=== PATIENT | female | born 1985 | race Caucasian/White ===

== ENCOUNTER 2016-11-25 08:51 | Emergency (ER) | payer OTHER ==
[2016-11-25 09:21] VITALS: BP 101/76
--- NOTE | 2016-11-25 09:31 | UC ---
Throat Pain/Nasal [place] HPI - HPI Summary HPI Summary: NASAL CONGESTION / COUGH X 10 DAYS NO FEVER, + CHILLS , NO BODY ACHES - History of Current Complaint Chief Complaint: UCGeneralIllness Stated Complaint: CONGESTION,FEVER Time Seen by Provider: 11/25/16 09:23 Hx Obtained From: Patient Hx Last Menstrual Period: uterine ablation and tubal 2015 Onset/Duration: Gradual Onset, Lasting Days - 10, Still Present Severity: Moderate Cough: Nonproductive Associated Signs & Symptoms: Positive: Sinus Discomfort, Nasal Discharge. Negative: Fever, Vomiting, Rash - Allergies/Home Medications Allergies/Adverse Reactions: Allergies Allergy/AdvReac Type Severity Reaction Status Date / Time Sulfamethoxazole Allergy DIARRHEA/STOMACH Verified 11/25/16 09:21 w/Trimethoprim CRAMPING [From Bactrim] AND HEADACHES PMH/Surg Hx/FS Hx/Imm Hx Endocrine History Of: Denies: Diabetes Cardiovascular History Of: Denies: Hypertension, Pacemaker/ICD Respiratory History Of: Reports: Bronchitis - GETS FEW TIMES A WINTER GI/ History Of: Denies: Renal Disease Neurological History Of: Reports: Migraine Psychological History Of: Reports: Anxiety, Depression - Surgical History Surgical History: Yes Surgery Procedure, Year, and Place: -01/26/12;GANGLION [facility]ST [facility] -06/23;. uterine ablation and tubal LIGATION 06/27/2015 [facility]. [facility] - [place] - Family History Known Family History: Positive: Hypertension - FATHER Negative: Cardiac Disease, Diabetes - Social History Alcohol Use: None Substance Use Type: None Smoking Status (MU): Former Smoker - Immunization History Most Recent Influenza Vaccination: june 2016 Review of Systems Constitutional: Chills, Fatigue Skin: Negative Eyes: Negative ENT: Sore Throat, Ear Ache, Nasal Discharge Respiratory: Cough Cardiovascular: Negative Gastrointestinal: Negative All Other Systems Reviewed And Are Negative: Yes Physical Exam Triage Information Reviewed: Yes Appearance: Well-Appearing, No Pain Distress, Well-Nourished Vital Signs: Initial Vital Signs Temp 99.0 F 11/25/16 09:18 Pulse 74 11/25/16 09:18 Resp 18 11/25/16 09:18 BP 101/76 11/25/16 09:18 Pulse Ox 100 11/25/16 09:18 Vital Signs Reviewed: Yes Eyes: Positive: Conjunctiva Clear ENT: Positive: Normal ENT inspection, Hearing grossly normal, Pharynx normal, Nasal congestion, Nasal drainage Neck exam: Normal Neck: Positive: Supple, Nontender, No Lymphadenopathy Respiratory: Positive: Chest non-tender, Lungs clear, Normal breath sounds Cardiovascular: Positive: RRR, No Murmur, Pulses Normal Skin: Positive: rashes Throat Pain/Nasal Course/Dx - Differential Dx/Diagnosis Provider Diagnoses: URI Discharge - Discharge Plan Condition: Stable Disposition: HOME Patient Education Materials: Upper Respiratory Infection (ED) Referrals: Dorothy Rankin MD [Primary Care Provider] - If Needed
== END 2016-11-25 09:39 | disposition home or self-care (01) ==
LOC: UCCORT 08:51
DX: J06.9 Acute upper respiratory infection, unspecified (principal); Z88.2 Allergy status to sulfonamides; Z87.891 Personal history of nicotine dependence
CPT/HCPCS: 99211; G0463

== ENCOUNTER 2017-02-15 07:42 | Emergency (ER) | payer MEDICAID, OTHER ==
[2017-02-15 07:57] VITALS: BP 104/71
[2017-02-15] MEDS ORDERED: Ketorolac INJ* 60 MG/2 ML VIAL IM ONE (08:01)
[2017-02-15] MEDS ORDERED: Ondansetron ODT TAB* 4 MG PO ONE (08:02)
--- NOTE | 2017-02-15 08:17 | UC ---
Headache HPI - History Of Current Complaint Chief Complaint: UCHeadanolberto Stated Complaint: MIGRAINE Time Seen by Provider: 02/15/17 07:44 Hx Obtained From: Patient Hx Last Menstrual Period: 02/15/17 ?: No Onset/Duration: Gradual Onset, Lasting Days - 1, Still Present Onset Of Symptoms: Gradual Initially Headache Was: Severe Currently Pain Is: Severe Timing: Constant Character: Sharp, Throbbing, Migraine Location of Headache: Diffuse Aggravating Factor: Bright Lights Allevating Factors: Nothing Associated Signs And Symptoms: Positive: Nausea. Negative: Dizziness, Seizure, Vomiting, Sinus Pressure, Fever, Neck Pain, Neck Stiffness, Decreased LOC, Visual Changes - Allergies/Home Medications Allergies/Adverse Reactions: Allergies Allergy/AdvReac Type Severity Reaction Status Date / Time Sulfamethoxazole Allergy DIARRHEA/STOMACH Verified 02/15/17 07:48 w/Trimethoprim CRAMPING [From Bactrim] AND HEADACHES Home Medications: Home Medications Migraine Medication 1 tab PRN 02/15/17 [History] PMH/Surg Hx/FS Hx/Imm Hx Other Neurological History: headaches - Surgical History Surgical History: Yes Surgery Procedure, Year, and Place: -01/26/12;GANGLION CYST ON [facility] -06/23;. uterine ablation and tubal LIGATION 06/27/2015 [facility]. [facility] - [place] - Family History Known Family History: Positive: Hypertension - FATHER Negative: Cardiac Disease, Diabetes - Social History Alcohol Use: Rare Substance Use Type: Marijuana Substance Use Comment - Amount & Last Used: Yesterday 02/14/17 Smoking Status (MU): Former Smoker - Immunization History Most Recent Influenza Vaccination: june 2016 Most Recent Tetanus Shot: UTD Most Recent Pneumonia Vaccination: N/A Review of Systems Constitutional: Negative Skin: Negative Eyes: Negative ENT: Nasal Discharge Respiratory: Negative Cardiovascular: Negative Neurological: Headache All Other Systems Reviewed And Are Negative: Yes Physical Exam Triage Information Reviewed: Yes Appearance: Well-Appearing, Well-Nourished, Pain Distress Vital Signs: Initial Vital Signs Temp 98.7 F 02/15/17 07:50 Pulse 64 02/15/17 07:50 Resp 18 02/15/17 07:50 BP 104/71 02/15/17 07:50 Pulse Ox 99 02/15/17 07:50 Vital Signs Reviewed: Yes Eye Exam: Normal Eyes: Positive: Conjunctiva Clear ENT: Positive: Normal ENT inspection, Hearing grossly normal, Pharynx normal, Nasal congestion, TMs normal. Negative: Nasal drainage Neck: Positive: Supple, Nontender, No Lymphadenopathy Respiratory: Positive: Chest non-tender, Lungs clear, Normal breath sounds Cardiovascular: Positive: RRR, No Murmur, Pulses Normal Abdominal Exam: Normal Neurological: Positive: Alert, Muscle Tone Normal UC Physical Exam Vital Signs On Initial Exam: Initial Vitals Temp Pulse Resp BP Pulse Ox 98.7 F 64 18 104/71 99 02/15/17 07:50 02/15/17 07:50 02/15/17 07:50 02/15/17 07:50 02/15/17 07:50 - Neurological Exam Neurological: Sensory/Motor Intact, Alert, Oriented to Person Place, Time, CN Intact II-III, Reflexes Intact, NV Bundle Intact Distally, Normal Gait, Speech Normal Headache Course/Dx - Differential Dx/Diagnosis Provider Diagnoses: headaches Discharge - Discharge Plan Condition: Stable Disposition: HOME Patient Education Materials: Migraine Headache (ED) Forms: *Work Release Referrals: Dorothy Rankin MD [Primary Care Provider] - 7 Days
== END 2017-02-15 08:39 | disposition home or self-care (01) ==
LOC: UCCORT 07:42
DX: R51 Headache (principal); R11.0 Nausea; Z88.2 Allergy status to sulfonamides; Z87.891 Personal history of nicotine dependence
CPT/HCPCS: 96372; 99212; A9270-GY; G0463; J1885

== ENCOUNTER 2017-04-12 11:29 | Emergency (ER) | payer MEDICAID, OTHER ==
[2017-04-12 11:41] VITALS: BP 116/81
--- NOTE | 2017-04-12 12:19 | UC ---
Headache HPI - HPI Summary HPI Summary: sever headaches x 2 hrs pain is shooting, sharp, radiating to the back of the head + mild nausea, mild photophobia - History Of Current Complaint Chief Complaint: UCHeadache Stated Complaint: SHOOTING PAIN IN HEAD Time Seen by Provider: 04/12/17 12:08 Hx Obtained From: Patient Hx Last Menstrual Period: unknown Onset/Duration: Gradual Onset, Lasting Hours - 2, Still Present Onset Of Symptoms: Gradual Currently Pain Is: Severe Timing: Constant Character: Throbbing Location of Headache: Diffuse Aggravating Factor: Bright Lights Allevating Factors: Nothing Associated Signs And Symptoms: Positive: Nausea. Negative: Dizziness, Seizure, Vomiting, Sinus Pressure, Fever, Neck Pain, Neck Stiffness, Decreased LOC, Visual Changes - Allergies/Home Medications Allergies/Adverse Reactions: Allergies Allergy/AdvReac Type Severity Reaction Status Date / Time Sulfamethoxazole Allergy DIARRHEA/STOMACH Verified 04/12/17 11:41 w/Trimethoprim CRAMPING [From Bactrim] AND HEADACHES PMH/Surg Hx/FS Hx/Imm Hx Previously Healthy: Yes Neurological History: Migraine - Surgical History Surgical History: Yes Surgery Procedure, Year, and Place: -01/26/12;GANGLION CYST ON [facility] -06/23;. uterine ablation and tubal LIGATION 06/27/2015 [facility]. [facility] - [place] - Family History Known Family History: Positive: Hypertension - FATHER Negative: Cardiac Disease, Diabetes - Social History Alcohol Use: Rare Substance Use Type: Marijuana Substance Use Comment - Amount & Last Used: 04/12/17 Smoking Status (MU): Former Smoker - Immunization History Most Recent Influenza Vaccination: june 2016 Most Recent Tetanus Shot: UTD Most Recent Pneumonia Vaccination: N/A Review of Systems Constitutional: Negative Skin: Negative Eyes: Negative ENT: Negative Respiratory: Negative Cardiovascular: Negative Neurological: Headache All Other Systems Reviewed And Are Negative: Yes Physical Exam Triage Information Reviewed: Yes Appearance: Well-Appearing, No Pain Distress, Well-Nourished Vital Signs: Initial Vital Signs Temp 98.8 F 04/12/17 11:35 Pulse 85 04/12/17 11:35 Resp 18 04/12/17 11:35 BP 116/81 04/12/17 11:35 Vital Signs Reviewed: Yes Eyes: Positive: Conjunctiva Clear ENT: Positive: Normal ENT inspection, Hearing grossly normal, Pharynx normal Neck: Positive: Supple, Nontender, No Lymphadenopathy Respiratory Exam: Normal Respiratory: Positive: Chest non-tender, Lungs clear, Normal breath sounds, No respiratory distress Cardiovascular: Positive: RRR, No Murmur, Pulses Normal Abdominal Exam: Normal Abdomen Description: Positive: Soft Neurological Exam: Normal Neurological: Positive: Alert, Muscle Tone Normal, Fatigued Skin Exam: Normal UC Physical Exam Vital Signs On Initial Exam: Initial Vitals Temp Pulse Resp BP 98.8 F 85 18 116/81 04/12/17 11:35 04/12/17 11:35 04/12/17 11:35 04/12/17 11:35 - Neurological Exam Neurological: Normal, Sensory/Motor Intact, Alert, Oriented to Person Place, Time, CN Intact II-III, Reflexes Intact, Normal Gait, Speech Normal Headache Course/Dx - Differential Dx/Diagnosis Provider Diagnoses: acute headache Discharge - Discharge Plan Condition: Stable Disposition: HOME Patient Education Materials: Acute Headache (ED) Forms: *Work Release Referrals: Dorothy Rankin MD [Primary Care Provider] - 7 Days Additional Instructions: may take Imitrex as soon as you get home
== END 2017-04-12 12:25 | disposition home or self-care (01) ==
LOC: UCCORT 11:29
DX: R51 Headache (principal); Z87.891 Personal history of nicotine dependence
CPT/HCPCS: 99211; G0463

== ENCOUNTER 2018-01-28 10:40 | Emergency (ER) | payer OTHER ==
[2018-01-28 11:17] VITALS: BP 127/74
--- NOTE | 2018-01-28 11:53 | UC ---
UC General HPI - HPI Summary HPI Summary: PT IS C/O SEVERE BURNING IN HER LEFT ABDOMEN. IT BEGAN SUDDENLY 3 DAYS AGO AND IS WORSENING. SHE TRIED TO TX WITH HEAT AND A MM RELAXOR WITH NO RELIEF. HX R OVARIAN CYSTS AND ASSUMED THAT AT ONSET BUT THIS IS NOW FEELING DIFFERENT AND WORSE. + NAUSEA BUT NO FEVER V/D/DYSURIA. DENIES ANY VAGINAL D/C, RISK/CONCERN PELVIC INFECTION. - History of Current Complaint Hx Obtained From: Patient Hx Last Menstrual Period: unknown Onset/Duration: Sudden Onset Timing: Constant Pain Intensity: 10 Aggravating: ANY TYPE OF MOVEMENT Alleviating: NOTHING Associated Signs & Symptoms: Positive: Abdominal Pain. Negative: Diarrhea, Dysuria, Fever, Vomiting <Lacy Townsend - Last Filed: 01/28/18 11:57> <Lexus Da Silva - Last Filed: 01/28/18 12:48> - History of Current Complaint Chief Complaint: UCAbdominalPain Stated Complaint: ABDOMINAL PAIN Time Seen by Provider: 01/28/18 11:46 - Allergy/Home Medications Allergies/Adverse Reactions: Allergies Allergy/AdvReac Type Severity Reaction Status Date / Time sulfamethoxazole Allergy Diarrhea Verified 01/28/18 11:21 [From Bactrim] trimethoprim [From Bactrim] Allergy Diarrhea Verified 01/28/18 11:21 Home Medications: Home Medications Cyclobenzaprine TAB* [Flexeril 10 MG TAB*] 10 mg PO DAILY 01/28/18 [History Confirmed 01/28/18] PMH/Surg Hx/FS Hx/Imm Hx - Additional Past Medical History Additional PMH: ALLERGIES, R OVARIAN CYST Neurological History: Migraine - Surgical History Surgical History: Yes Surgery Procedure, Year, and Place: -01/26/12;GANGLION CYST [facility] -06/23;. uterine ablation and tubal LIGATION 06/27/2015 [facility]. Lt [facility] - [place] - Family History Known Family History: Positive: Hypertension - FATHER Negative: Cardiac Disease, Diabetes - Social History Lives: With Family Alcohol Use: Rare Substance Use Type: Marijuana Substance Use Comment - Amount & Last Used: 04/12/17 Smoking Status (MU): Former Smoker - Immunization History Most Recent Influenza Vaccination: june 2016 Most Recent Tetanus Shot: UTD Most Recent Pneumonia Vaccination: N/A Vaccination Up to Date: Yes <Lacy Townsend - Last Filed: 01/28/18 11:57> Review of Systems Constitutional: Negative Skin: Negative Eyes: Negative ENT: Negative Respiratory: Negative Cardiovascular: Negative Gastrointestinal: Abdominal Pain, Nausea Genitourinary: Negative Motor: Negative Neurovascular: Negative Musculoskeletal: Negative Neurological: Negative Psychological: Negative Is Patient Immunocompromised?: No All Other Systems Reviewed And Are Negative: Yes <Lacy Townsend - Last Filed: 01/28/18 11:57> Physical Exam Triage Information Reviewed: Yes Appearance: Pain Distress Vital Signs: Initial Vital Signs Temp 97.8 F 01/28/18 11:09 Pulse 70 01/28/18 11:09 Resp 18 01/28/18 11:09 BP 127/74 01/28/18 11:09 Pulse Ox 100 01/28/18 11:09 Vital Signs Reviewed: Yes Eyes: Positive: Conjunctiva Clear ENT: Positive: Pharynx normal, TMs normal. Negative: Nasal congestion, Nasal drainage Neck: Positive: Supple, Nontender, No Lymphadenopathy Respiratory: Positive: Lungs clear, Normal breath sounds Cardiovascular: Positive: RRR, No Murmur Abdomen Description: Positive: Other: - Flat. Hyperactive BS. Soft. Tendernes to LUQ and LLQ with peritoneal signs. No mass, hsm or CVA tenderness.. Negative : Bruit Musculoskeletal: Positive: ROM Intact Neurological: Positive: Alert Psychological: Positive: Age Appropriate Behavior Skin Exam: Normal <CaryLacy - Last Filed: 01/28/18 11:57> Vital Signs: Initial Vital Signs Temp 97.8 F 01/28/18 11:09 Pulse 70 01/28/18 11:09 Resp 01/28/18 11:09 BP 127/74 01/28/18 11:09 Pulse Ox 100 01/28/18 11:09 <Lexus Da Silva - Last Filed: 01/28/18 12:48> Diagnostics - Laboratory Diagnostic Studies Completed/Ordered: hcg=neg. u/a=1+ leuks, 0.2 urobilogen <Lacy Townsend - Last Filed: 01/28/18 11:57> Course/Dx - Course Course Of Treatment: HCG=neg. pt having svere abdominal pain with peritoneal signs thus requires ER transfer. she agrees to go but refused ems despite risk of mva, worsening, disability and . she is a&o x3 and able to makes decisions thus I must respect her wish to drive self to ER. Report given to Dr Goode at [facility] ER. advised of sever abdominal pain and coming vis car. - Differential Dx - Multi-Symptom Provider Diagnoses: L sided abdominal pain <Lacy Townsend - Last Filed: 01/28/18 11:57> Discharge - Sign-Out/Discharge Documenting (check all that apply): Discharge/Admit/Transfer - Billing Disposition and Condition Condition: STABLE Disposition: EMTALA <Lacy Townsend - Last Filed: 01/28/18 11:57> - Billing Disposition and Condition Condition: STABLE Disposition: EMTALA <Lexus Da Silva - Last Filed: 01/28/18 12:48> - Discharge Plan Condition: Stable Disposition: TRANS HIGHER LVL OF CARE FAC Referrals: Dorothy Rankin MD [Primary Care Provider] - Additional Instructions: GO DIRECTLY TO THE [facility] ER FROM HERE DISCUSSED Attestation Statement User Type: Provider - I was available for consult. This patient was seen by the GONZÁLEZ. The patient was not presented to, seen by, or examined by me. -Yaima <Lexus Da Silva - Last Filed: 01/28/18 12:48>
== END 2018-01-28 11:59 | disposition short-term general hospital (02) ==
LOC: UCCORT 10:40
DX: R10.9 Unspecified abdominal pain (principal); Z87.891 Personal history of nicotine dependence; Z88.2 Allergy status to sulfonamides
CPT/HCPCS: 81003; 84702; 87086; 99212; G0463

== ENCOUNTER 2018-03-21 12:55 | Emergency (ER) | payer OTHER ==
[2018-03-21 13:30] VITALS: BP 104/54
--- NOTE | 2018-03-21 13:48 | UC ---
Lower Extremity/Ankle HPI - HPI Summary HPI Summary: right ankle / foot pain x 3 weeks injury 3 weeks ago , twisted her ankle cont. to have pain , no swelling, no redness, increase pain with walking, better with rest - History of Current Complaint Chief Complaint: UCLowerExtremity Stated Complaint: RT ANKLE COMP Time Seen by Provider: 03/21/18 13:23 Hx Obtained From: Patient Hx Last Menstrual Period: unknown ?: No Onset/Duration: Sudden Onset, Lasting Weeks - 3, Still Present Severity Initially: Moderate Severity Currently: Moderate Pain Intensity: 5 Aggravating Factor(s): Standing, Ambulation Alleviating Factor(s): Rest, Elevation Able to Bear Weight: Yes - Allergies/Home Medications Allergies/Adverse Reactions: Allergies Allergy/AdvReac Type Severity Reaction Status Date / Time sulfamethoxazole Allergy Diarrhea Verified 03/21/18 13:24 [From Bactrim] trimethoprim [From Bactrim] Allergy Diarrhea Verified 03/21/18 13:24 PMH/Surg Hx/FS Hx/Imm Hx Respiratory History: Asthma Neurological History: Migraine - Surgical History Surgical History: Yes Surgery Procedure, Year, and Place: -01/26/12;GANGLION CYST ON [facility] -06/23;. uterine ablation and tubal LIGATION 06/27/2015 [facility]. Lt [facility] - [place] - Family History Known Family History: Positive: Hypertension - FATHER Negative: Cardiac Disease, Diabetes - Social History Alcohol Use: None Substance Use Type: None Substance Use Comment - Amount & Last Used: 04/12/17 Smoking Status (MU): Former Smoker When Did the Patient Quit Smoking/Using Tobacco: 10 years ago - Immunization History Most Recent Influenza Vaccination: june 2016 Most Recent Tetanus Shot: UTD Most Recent Pneumonia Vaccination: N/A Vaccination Up to Date: Yes Review of Systems Constitutional: Negative Skin: Negative Eyes: Negative ENT: Negative Respiratory: Negative Is Patient Immunocompromised?: No All Other Systems Reviewed And Are Negative: Yes Physical Exam Triage Information Reviewed: Yes Appearance: Well-Appearing, No Pain Distress, Well-Nourished Vital Signs: Initial Vital Signs Temp 98.8 F 03/21/18 13:25 Pulse 79 03/21/18 13:25 Resp 14 03/21/18 13:25 BP 104/54 03/21/18 13:25 Pulse Ox 100 03/21/18 13:25 Vital Signs Reviewed: Yes Eye Exam: Normal Eyes: Positive: Conjunctiva Clear ENT: Positive: Normal ENT inspection, Hearing grossly normal, Pharynx normal Neck exam: Normal Respiratory: Positive: Chest non-tender, Lungs clear, Normal breath sounds Cardiovascular: Positive: RRR, No Murmur, Pulses Normal Musculoskeletal: Positive: Other: - right foot : + no swelling, no erythema, + diffuse tenderness of foot and lateral ankle good ROM , Diagnostics - Laboratory Diagnostic Studies Completed/Ordered: right foot xray: no fracture , Lower Extremity Course/Dx - Differential Dx/Diagnosis Provider Diagnoses: sprain right foot. sprain right ankle Discharge - Sign-Out/Discharge Documenting (check all that apply): Discharge/Admit/Transfer - Discharge Plan Condition: Stable Disposition: HOME Prescriptions: Naproxen [Naproxen 500 mg tab] 500 mg PO BID #20 tablet Patient Education Materials: Tendinitis (ED) Referrals: Dorothy Rankin MD [Primary Care Provider] - 2 Weeks - Billing Disposition and Condition Condition: STABLE Disposition: Home
--- NOTE | 2018-03-21 13:49 | RAD ---
HISTORY: twisted her right foot COMPARISONS: May 22, 2014 VIEWS: 3, Frontal, lateral, and oblique views of the right foot FINDINGS: BONE DENSITY: Normal. BONES: There is no displaced fracture. JOINTS: There is no arthropathy. ALIGNMENT: There is no dislocation. SOFT TISSUES: Unremarkable. OTHER FINDINGS: None. IMPRESSION: NO ACUTE OSSEOUS INJURY. IF SYMPTOMS PERSIST, RECOMMEND REPEAT IMAGING.
== END 2018-03-21 14:08 | disposition home or self-care (01) ==
LOC: UCCORT 12:55
DX: S93.401A Sprain of unspecified ligament of right ankle, initial encounter (principal); S93.601A Unspecified sprain of right foot, initial encounter; X50.1XXA Overexertion from prolonged static or awkward postures, initial encounter; Y93.9 Activity, unspecified; Y92.9 Unspecified place or not applicable; J45.909 Unspecified asthma, uncomplicated; G43.909 Migraine, unspecified, not intractable, without status migrainosus; Z88.2 Allergy status to sulfonamides; Z82.49 Family history of ischemic heart disease and other diseases of the circulatory system; Z87.891 Personal history of nicotine dependence
CPT/HCPCS: 99212; G0463

== ENCOUNTER 2018-08-11 13:35 | Emergency (ER) | payer OTHER ==
--- OUTSIDE RECORDS SUMMARY | 2018-08-11 13:42 | XMS REPORT | Continuity of Care Document ---
:1985 External Reference #:[id number] Author Name Kaylene Kim Care Team Providers Name Role Phone Dorothy Rankin MD Primary Care Physician Unavailable Payers Type Date Identification Numbers Payment Provider Subscriber Expires: 2016 Policy Number: [id number] [employer] Medicaid PayID: [id number] [address] [address] [place] [address] Effective: 2016 Policy Number: [id number] [employer] Group Number: [id number] [address] PayID: [id number] [place] [address] Advance Directives Description No Information Available Problems Date Description Provider Status Onset: 04/01/2016 Pain in right arm Liza Danielle M.D. Active Onset: 04/16/2016 Disorder of shoulder Taco Metzger MD Active Onset: 04/16/2016 Neck pain Taco Metzger MD Active Onset: 04/16/2016 Thoracic radiculopathy Taco Metzger MD Active Onset: 06/11/2016 Fibromyalgia Taco Metzger MD Active Onset: 11/17/2016 Low back pain Tylor Zhao M.D. 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 Tobacco Use Start: Unknown End: Patient is a former smoker Unknown Smoking Status Reviewed: 07/31/18 Patient is a former smoker Exercise Type/Frequency Exercises sporadically Allergies, Adverse Reactions, Alerts Date Description Reaction Status Severity Comments 04/01/2016 Bactrim Active 06/01/2012 NKDA Inactive Medications Medication Date Status Form Strength Qnty SIG Indications Ordering Provider Plaquenil 07/13 Active Tablets 200mg 30tab Take one s capsule/tabl Kailee, et daily by Uzair mouth Aspercreme 05/10 Active Patches 4% 30uni apply one Lidocaine ts patch to the Kailee, Strength affected M.D. area daily, 12 hours on, 12 hours off B12 Fast 05/08 Active Tablets 5000mcg 90tab sublingual D51.9 Dispers s daily Uzair Dugan Cyanocobalamin 08/31 Active Solution 1000mcg/M 75ml sq once R20.8 L monthly Uzair Dugan Elmiron Active Capsules 100mg 1 by mouth Elliott, / three times MD Rinku daily Claritin Active Capsules 10mg 1 by mouth Unknown /0000 every day Cyclobenzaprine Active Tablets 10mg one by mouth Unknown HCL /0000 three times a day as needed spasm Womens Active Tablets Unknown Multivitamin / St Brian Wort Active Capsules 150mg Unknown /0000 Lidoderm 05/08 Hx Patches 5% 30uni 1 apply to M54.5 ts affected Kailee, - area 12 M.D. 05/23 hours on, hours off Melatonin TR 04/12 Hx Tablets 3-10mg 90tab take one G47.00 With Vitamin B6 ER s capsule/tabl Kailee, - et daily by Uzair 05/08 Turmeric 08/31 Hx Capsules 500mg Take one capsule/tabl Kailee, - et daily by Uzair 04/12 Diclofenac 08/11 Hx Tablets 75mg 30tab take one DR s capsule/tabl Kailee, - et by mouth Uzair 11/29 twice daily as needed for pain, avoid other nsaids Prednisone 06/15 Hx Tablets 10mg 30tab take 4 tabs s by mouth Kailee, - daily for 2 M.D. 08/31 days then tabs daily for 2 days then 2 tabs for 2 days then 1 tab for 2 days then d/c Plaquenil 06/07 Hx Tablets 200mg 60tab 2 every s other day Kailee, - M.D. 04/12 Ibuprofen 04/25 Hx Tablets 800mg 42tab take 1 s tablet by Kailee, - mouth three M.D. 08/11 times daily as needed -- maximum daily dose 3, avoid other NSAIDs Meloxicam 12/24 Hx Tablets 7.5mg 60tab take one tab M79.7 s twice daily Kailee, - as needed M.D. 06/02 for pain, avoid other nsaids (PT Not Taking) Naltrexone HCL 11/18 Hx Powder 90uni 4.5 mg ts compounded Kailee, - in capsules M.D. 12/24 by mouth every day Baclofen 11/08 Hx Tablets 10mg 60tab take 1 tab R20.2 s bid prn Kailee, - muscle spasm M.D. 08/31 Soma 10/08 Hx Tablets 350mg 30tab take one R20.2 s tablet/capsu Kailee, - le by mouth M.D. 11/08 at bedtime. as needed for severe muscular spasm Slow Release 09/24 Hx Tablets 50mg 90tab take one M79.7 Damián ER s capsule/tabl Kailee, - et daily by M.D. 12/24 mouth Gabapentin 09/17 Hx Capsules 300mg 90cap 300mg by M79.7 s mouth three Kailee, - times daily M.D. 11/16 for neuropathic pain Tizanidine HCL 09/02 Hx Tablets 2mg 30tab Take one M79.7 s capsule/tabl Kailee, - et by mouth M.D. 09/24 twice daily as needed for spasms, avoid with driving Prednisone 09/02 Hx Tablets 5mg 90tab Please take M79.7 s 4 for 2 days Kailee, - then 3 for 2 M.D. 09/24 days then for 2 days 1 by mouth for 2 days then stop Prednisone 07/30 Hx Tablets 2.5mg 30tab take 3 tabs s daily for 5 Kailee, - days then 2 M.D. 09/02 tabs daily for 5 days then 1 tab daily for 5 days then discontinue Medrol 06/11 Hx TBPK 4mg 21uni take as M75.41 ts directed by MD Domenica - packaging 07/07 Tramadol HCL 05/18 Hx Tablets 50mg 30tab 1-2 tablets s every 6 Reza, - hours as M.D. 11/02 Buspirone HCL 04/16 Hx Tablets 5mg 14tab tid s MD Domenica - 07/07 Ultracet 06/25 Hx Tablets 37.5-325m 30tab 1 - 2 po g s q4-6hr prn Mosquera, - pain M.D. 07/16 Acetaminophen/Co 09/28 Hx Tablets 300-30mg 30tab 1 po q 4-6 Jami deine #3 s hr prn pain Mosquera, - M.D. 07/16 Ultracet 06/15 Hx Tablets 37.5-325m 30tab 1 - 2 po g s q4-6hr prn Mosquera, - pain M.D. 07/16 Vol-Plus Hx Tablets 27-1mg 1 qs Unknown /0000 - 07/16 Flexeril Hx Tablets 5mg 30tab 1 tablet Unknown /0000 s three times - a day as 07/15 Valacyclovir HCL Hx Tablets 500mg 90tab 1 po qd Unknown /0000 s - 07/[address] 30mg 90cap 1 by mouth Unknown /0000 Part s every - morning 03/31 Opana Hx Tablets 5mg 120ta 1 tablet by Unknown /0000 bs mouth up to - three times 03/31 a day needed. Lyrica Hx Capsules 100mg 30cap 1 by mouth Damián /0000 s every night Geovanna Dugan M.D. 09/17 Topiramate Hx Tablets 50mg 1 by mouth Unknown /0000 every day - 04/12 Xanax Hx Tablets 0.25mg one by mouth Unknown /0000 up to three - times daily 12/24 as needed /2017 for anxiety Prednisone Hx Tablets 10mg 10mg daily Unknown - 07/30 Paroxetine HCL Hx Tablets 40mg 1 by mouth Unknown every day - 05/30 Amitriptyline Hx Tablets 10mg 1-2 at [facility], HCL /0000 bedtime. Geovanna De La Cruz MD 11/29 Citalopram Hx Tablets 20mg 1 by mouth Unknown Hydrobromide /0000 every day - 08/31 Dexamethasone Hx Tablets 2mg Unknown - 08/31 Fluoxetine HCL Hx Capsules 20mg 1 by mouth Unknown every day - 04/12 Womens Daily Hx Tablets Unknown - 04/12 Medications Administered in Office Medication Date Status Form Strength Qnty SIG Indications Ordering Provider No Injection 07/31/ Administered Injection Damián 2017 Uzair Dugan B-12 Injection 07/13/ Administered Injection Damián 2018 Uzair Dugan B-12 Injection 02/09/ Administered Injection Damián 2018 Uzair Dugan B-12 Injection 11/29/ Administered Injection Damián 2018 Uzair Dugan B12 Provided By 08/31/ Administered Injection Damián Patient 2016 Uzair Dugan Triamcinolone 04/25/ Administered Injection Damián (Kenalog) 2016 Uzair Dugan Depomedrol 40MG 03/03/ Administered Injection Jami 2015 Uzair Mosquera Depomedrol 40MG 11/05/ Administered Injection Jami 2015 Uzair Mosquera Depomedrol 80MG 01/27/ Administered Injection Jami 2014 Uzair Mosquera Depomedrol 80MG 07/17/ Administered Injection Jami 2013 Uzair Mosquera Depomedrol 80MG 04/04/ Administered Injection Jami 2012 Uzair Mosquera Immunizations Description No Information Available Vital Signs Date Vital Result Comment 07/31/2018 3:00pm Height 62 inches 5'2" Weight 109.25 lb Heart Rate 83 /min BP Systolic Sitting 116 mmHg BP Diastolic Sitting 80 mmHg Pain Level 8 O2 % BldC Oximetry 97 % BMI (Body Mass Index) 20.0 kg/m2 07/13/2018 2:00pm Height 62 inches 5'2" Weight 109.00 lb Heart Rate 82 /min BP Systolic Sitting 118 mmHg BP Diastolic Sitting 62 mmHg Pain Level 8 O2 % BldC Oximetry 98 % BMI (Body Mass Index) 19.9 kg/m2 05/08/2018 4:11pm Height 62 inches 5'2" Weight 120.00 lb Heart Rate 72 /min BP Systolic Sitting 124 mmHg BP Diastolic Sitting 82 mmHg Respiratory Rate 14 /min Pain Level 9 BMI (Body Mass Index) 21.9 kg/m2 04/12/2018 10:50am Height 62 inches 5'2" Heart Rate 69 /min BP Systolic Sitting 89 mmHg BP Diastolic Sitting 58 mmHg Respiratory Rate 14 /min Pain Level 9 02/09/2018 10:41am Height 62 inches 5'2" Weight 120.00 lb Heart Rate 72 /min BP Systolic 108 mmHg BP Diastolic 65 mmHg Pain Level 4 O2 % BldC Oximetry 97 % BMI (Body Mass Index) 21.9 kg/m2 11/29/2017 2:53pm Height 62 inches 5'2" Weight 117.00 lb Heart Rate 72 /min BP Systolic Sitting 103 mmHg BP Diastolic Sitting 70 mmHg Respiratory Rate 14 /min Pain Level 6 BMI (Body Mass Index) 21.4 kg/m2 08/31/2017 9:50am Height 62 inches 5'2" Weight 123.00 lb Heart Rate 89 /min BP Systolic Sitting 104 mmHg BP Diastolic Sitting 70 mmHg Respiratory Rate 14 /min Pain Level 3 BMI (Body Mass Index) 22.5 kg/m2 05/30/2017 1:53pm Height 62 inches 5'2" Weight 119.00 lb Heart Rate 78 /min BP Systolic Sitting 109 mmHg BP Diastolic Sitting 68 mmHg Respiratory Rate 14 /min Pain Level 5 BMI (Body Mass Index) 21.8 kg/m2 04/25/2017 9:49am Height 62 inches 5'2" Weight 118.25 lb Heart Rate 60 /min BP Systolic Sitting 102 mmHg BP Diastolic Sitting 60 mmHg Respiratory Rate 14 /min Body Temperature 98.1 F Pain Level 8 BMI (Body Mass Index) 21.6 kg/m2 12/24/2016 9:41am Height 62 inches 5'2" Weight 113.00 lb Heart Rate 70 /min BP Systolic Sitting 99 mmHg BP Diastolic Sitting 57 mmHg Body Temperature 97.7 F Pain Level 4 BMI (Body Mass Index) 20.7 kg/m2 11/17/2016 2:05pm Height 62 inches 5'2" Weight 105.00 lb Heart Rate 76 /min BP Systolic Sitting 98 mmHg BP Diastolic Sitting 60 mmHg Respiratory Rate 18 /min Pain Level 3 BMI (Body Mass Index) 19.2 kg/m2 11/02/2016 11:38am Height 62 inches 5'2" Weight 107.00 lb Heart Rate 76 /min BP Systolic Sitting 102 mmHg BP Diastolic Sitting 68 mmHg Body Temperature 98.5 F Pain Level 2 BMI (Body Mass Index) 19.6 kg/m2 10/29/2016 10:57am Height 62 inches 5'2" Weight 109.00 lb Heart Rate 62 /min BP Systolic Sitting 110 mmHg BP Diastolic Sitting 70 mmHg Pain Level 1 BMI (Body Mass Index) 19.9 kg/m2 10/08/2016 12:54pm Height 62 inches 5'2" Heart Rate 88 /min BP Systolic Sitting 92 mmHg BP Diastolic Sitting 60 mmHg Respiratory Rate 14 /min Body Temperature 95.8 F Pain Level 10 09/24/2016 12:48pm Height 62 inches 5'2" Weight 110.00 lb Heart Rate 84 /min BP Systolic Sitting 100 mmHg BP Diastolic Sitting 60 mmHg Respiratory Rate 14 /min Body Temperature 98.3 F Pain Level 6 BMI (Body Mass Index) 20.1 kg/m2 09/02/2016 9:46am Height 62 inches 5'2" Weight 110.50 lb Heart Rate 76 /min BP Systolic Sitting 90 mmHg BP Diastolic Sitting 60 mmHg Respiratory Rate 14 /min Body Temperature 97.0 F Pain Level 8 BMI (Body Mass Index) 20.2 kg/m2 07/30/2016 11:30am Height 62 inches 5'2" Weight 111.00 lb Heart Rate 80 /min BP Systolic Sitting 100 mmHg BP Diastolic Sitting 60 mmHg Respiratory Rate 14 /min Body Temperature 98.7 F Pain Level 4 BMI (Body Mass Index) 20.3 kg/m2 07/07/2016 1:56pm Height 62 inches 5'2" Weight 105.38 lb Heart Rate 72 /min BP Systolic Sitting 90 mmHg BP Diastolic Sitting 60 mmHg Respiratory Rate 14 /min Body Temperature 98.0 F Pain Level 7 BMI (Body Mass Index) 19.3 kg/m2 06/11/2016 3:45pm Height 62 inches 5'2" Weight 101.00 lb per pt Respiratory Rate 18 /min Pain Level 10 BMI (Body Mass Index) 18.5 kg/m2 05/25/2016 3:14pm Height 62 inches 5'2" Weight 101.00 lb Heart Rate 60 /min Respiratory Rate 16 /min Pain Level 8 BMI (Body Mass Index) 18.5 kg/m2 05/06/2016 8:05am Height 62 inches 5'2" Weight 101.00 lb Pain Level 3 BMI (Body Mass Index) 18.5 kg/m2 04/16/2016 3:08pm Height 62 inches 5'2" Weight 101.00 lb Heart Rate 62 /min BP Systolic Sitting 92 mmHg BP Diastolic Sitting 52 mmHg Pain Level 3 3/10 BMI (Body Mass Index) 18.5 kg/m2 04/01/2016 3:11pm Height 62 inches 5'2" Weight 101.00 lb Heart Rate 64 /min BP Systolic Sitting 110 mmHg BP Diastolic Sitting 66 mmHg Respiratory Rate 16 /min BMI (Body Mass Index) 18.5 kg/m2 03/03/2016 3:24pm Weight 100.00 lb Heart Rate 68 /min BP Systolic Sitting 110 mmHg BP Diastolic Sitting 62 mmHg 01/27/2015 8:03am Weight 105.00 lb Heart Rate 78 /min BP Systolic Sitting 124 mmHg BP Diastolic Sitting 82 mmHg 07/17/2014 3:49pm Height 62 inches 5'2" Weight 106.00 lb Heart Rate 70 /min BP Systolic Sitting 106 mmHg BP Diastolic Sitting 72 mmHg BMI (Body Mass Index) 19.4 kg/m2 06/25/2013 10:18am Height 62 inches 5'2" Weight 105.00 lb Heart Rate 76 /min BP Systolic Sitting 120 mmHg BP Diastolic Sitting 80 mmHg BMI (Body Mass Index) 19.2 kg/m2 06/15/2012 10:50am Weight 115.00 lb Heart Rate 78 /min BP Systolic Sitting 122 mmHg BP Diastolic Sitting 78 mmHg BMI (Body Mass Index) 3233.8 kg/m2 Results Test Date Facility Test Result H/L Range Note Laboratory test 07/17/2018 [facility] Erythrocyte Sed 3 mm/Hr N 0-14 [address] [place] [address] [phone] Connective Tissue 07/14/2018 [facility] Anti-Nuclear 0.1 U [address] [place] [address] [phone] Cyclic Citrullinated Peptide <15.6 U 3 Interpretation See Comment 4 Laboratory test 07/14/2018 [facility] Rheumatoid Factor < 10 IU/ mL N <[address] [place] [address] [phone] C Reactive Protein < 1.00 mg/L N <8.01 Comp Metabolic Panel 07/14/2018 [facility] Sodium 141 mmol/L N 135-[address] [place] [address] [phone] Potassium 3.8 mmol/L N 3.5-5.0 Chloride 107 mmol/L N 101-111 Co2 Carbon Dioxide 26 mmol/L N 22-32 Anion Gap 8 mmol/L N 2-11 Glucose 113 mg/dL High 70-100 Blood Urea Nitrogen 8 mg/dL N 6-24 Creatinine 0.74 mg/dL N 0.51-0.95 BUN/Creatinine Ratio 10.8 N 8-20 Calcium 9.7 mg/dL N 8.6-10.3 Total Protein 7.1 g/dL N 6.4-8.9 Albumin 4.9 g/dL N 3.2-5.2 Globulin 2.2 g/dL N 2-4 Albumin/Globulin Ratio 2.2 N 1-3 Total Bilirubin 0.60 mg/dL N 0.2-1.0 Alkaline Phosphatase 52 U/L N 34-104 Alt 9 U/L N 7-52 Ast 18 U/L N 13-39 Egfr Non- 91.0 >60 Egfr 110.1 >60 5 Vitamin B12 07/14/2018 [facility] Vitamin B12 > 1450 pg/mL High 180-9[address] [place] [address] [phone] Folic Acid (Folate) > 20.00 ng/mL >3.99 Laboratory test 07/14/2018 [facility] TSH (Thyroid 1.06 mcIU/mL N 0.34-5.[address] Stim [place]orm) [place] [address] [phone] CK Isoenzymes 07/14/2018 [facility] Creatine 93 U/L 26 - [address] [place] [address] [phone] CK Isoenzyme Elec, Specimen See Comment 7 Laboratory test 11/26/2017 [facility] Erythrocyte Sed 5 mm/Hr N 0-14 [address] [place] [address] [phone] C Reactive Protein 1.12 mg/L N < 5.00 9 CBC Auto Diff 11/26/2017 [facility] White Blood 6.2 10^3/uL N 3.5-10.[address] [place] [address] [phone] Red Blood Count 4.35 10^6/uL N 4.0-5.4 Hemoglobin 13.4 g/dL N 12.0-16.0 Hematocrit 39 % N 35-47 Mean Corpuscular Volume 89 fL N 80-97 Mean Corpuscular Hemoglobin 31 pg N 27-31 Mean Corpuscular HGB Conc 35 g/dL N 31-36 Red Cell Distribution Width 13 % N 10.5-15 Platelet Count 198 10^3/uL N 150-450 Mean Platelet Volume 9 um3 N 7.4-10.4 Abs Neutrophils 4.5 10^3/uL N 1.5-7.7 Abs Lymphocytes 1.1 10^3/uL N 1.0-4.8 Abs Monocytes 0.6 10^3/uL N 0-0.8 Abs Eosinophils 0.1 10^3/uL N 0-0.6 Abs Basophils 0 10^3/uL N 0-0.2 Abs Nucleated RBC 0 10^3/uL Granulocyte % 72.2 % N 38-83 Lymphocyte % 17.3 % Low 25-47 Monocyte % 9.3 % High 0-7 Eosinophil % 0.9 % N 0-6 Basophil % 0.3 % N 0-2 Nucleated Red Blood Cells % 0.1 Comp Metabolic Panel 11/26/2017 [facility] Sodium 137 mmol/L N 133-[address] [place] [address] [phone] Potassium 3.8 mmol/L N 3.5-5.0 Chloride 107 mmol/L N 101-111 Co2 Carbon Dioxide 25 mmol/L N 22-32 Anion Gap 5 mmol/L N 2-11 Glucose 90 mg/dL N 70-100 Blood Urea Nitrogen 10 mg/dL N 6-24 Creatinine 0.74 mg/dL N 0.51-0.95 BUN/Creatinine Ratio 13.5 N 8-20 Calcium 9.2 mg/dL N 8.6-10.3 Total Protein 6.5 g/dL N 6.4-8.9 Albumin 4.3 g/dL N 3.2-5.2 Globulin 2.2 g/dL N 2-4 Albumin/Globulin Ratio 2.0 N 1-3 Total Bilirubin 0.50 mg/dL N 0.2-1.0 Alkaline Phosphatase 48 U/L N 34-104 Alt 10 U/L N 7-52 Ast 15 U/L N 13-39 Egfr Non- 91.5 >60 Egfr 117.7 >60 10 Laboratory test 11/26/2017 [facility] Vitamin B12 581 pg/mL N 180-914 11 finding [address] [place] [address] [phone] Laboratory test 05/18/2017 [facility] C Reactive < 1.00 mg/L N < 5.00 12 finding [address] [facility] [place] [address] [phone] Erythrocyte Sed Rate 47 mm/Hr High 0-14 13 Comp Metabolic Panel 05/18/2017 [facility] Sodium 140 mmol/L N 133-145 [address] [place] [address] [phone] Potassium 3.5 mmol/L N 3.5-5.0 Chloride 104 mmol/L N 101-111 Co2 Carbon Dioxide 30 mmol/L N 22-32 Anion Gap 6 mmol/L N 2-11 Glucose 84 mg/dL N 70-100 Blood Urea Nitrogen 19 mg/dL N 6-24 Creatinine 0.87 mg/dL N 0.51-0.95 BUN/Creatinine Ratio 21.8 High 8-20 Calcium 9.8 mg/dL N 8.6-10.3 Total Protein 6.5 g/dL N 6.4-8.9 Albumin 4.3 g/dL N 3.2-5.2 Globulin 2.2 g/dL N 2-4 Albumin/Globulin Ratio 2.0 N 1-3 Total Bilirubin 0.30 mg/dL N 0.2-1.0 Alkaline Phosphatase 57 U/L N 34-104 Alt 11 U/L N 7-52 Ast 15 U/L N 13-39 Egfr Non- 76.4 N >60 Egfr 98.3 N >60 14 CBC Auto Diff 05/18/2017 [facility] White Blood 7.7 10^3/uL N 3.5-10.[address] [place] [address] [phone] Red Blood Count 4.23 10^6/uL N 4.0-5.4 Hemoglobin 13.2 g/dL N 12.0-16.0 Hematocrit 38 % N 35-47 Mean Corpuscular Volume 90 fL N 80-97 Mean Corpuscular Hemoglobin 31 pg N 27-31 Mean Corpuscular HGB Conc 35 g/dL N 31-36 Red Cell Distribution Width 13 % N 10.5-15 Platelet Count 227 10^3/uL N 150-450 Mean Platelet Volume 9 um3 N 7.4-10.4 Abs Neutrophils 5.3 10^3/uL N 1.5-7.7 Abs Lymphocytes 1.7 10^3/uL N 1.0-4.8 Abs Monocytes 0.5 10^3/uL N 0-0.8 Abs Eosinophils 0.1 10^3/uL N 0-0.6 Abs Basophils 0 10^3/uL N 0-0.2 Abs Nucleated RBC 0 10^3/uL N Granulocyte % 68.7 % N 38-83 Lymphocyte % 22.6 % Low 25-47 Monocyte % 7.0 % N 1-9 Eosinophil % 1.3 % N 0-6 Basophil % 0.4 % N 0-2 Nucleated Red Blood Cells % 0 N Laboratory test 09/02/2016 [facility] C Reactive 1.12 mg/L N < 5.00 [address] [place] [address] [phone] Erythrocyte Sed Rate 4 mm/Hr N 0-14 16 Creatine Kinase(CK) 41 U/L N 10-223 17 Cyclic Citrullinated Pep Igg <15.6 U N 18 Rheumatoid Factor <15 IU/mL N <15 19 Laboratory test 07/09/2016 [facility] Vitamin B12 446 pg/mL N 180-914 [address] [place] [address] [phone] Vitamin D, 1,25 Dihydroxy 79 pg/mL Abnormal 18-78 21 Laboratory test 07/09/2016 [facility] Erythrocyte Sed 0 mm/Hr N 0-14 [address] [place] [address] [phone] Hla B27 07/09/2016 [facility] Hla B27 Negative N [address] [place] [address] [phone] Hla B27 Interp See Comment N 24 Laboratory test 07/09/2016 [facility] Lyme Disease Negative N Negative [address] [place] [address] [phone] Creatine Kinase(CK) 27 U/L N 10-223 26 CBC Auto Diff 07/09/2016 [facility] White Blood 6.7 10^3/uL N 3.5-10.[address] [place] [address] [phone] Red Blood Count 4.41 10^6/uL N 4.0-5.4 Hemoglobin 13.5 g/dL N 12.0-16.0 Hematocrit 41 % N 35-47 Mean Corpuscular Volume 92 fL N 80-97 Mean Corpuscular Hemoglobin 31 pg N 27-31 Mean Corpuscular HGB Conc 33 g/dL N 31-36 Red Cell Distribution Width 13 % N 10.5-15 Platelet Count 231 10^3/uL N 150-450 Mean Platelet Volume 8 um3 N 7.4-10.4 Abs Neutrophils 3.7 10^3/uL N 1.5-7.7 Abs Lymphocytes 2.3 10^3/uL N 1.0-4.8 Abs Monocytes 0.7 10^3/uL N 0-0.8 Abs Eosinophils 0.1 10^3/uL N 0-0.6 Abs Basophils 0 10^3/uL N 0-0.2 Abs Nucleated RBC 0 10^3/uL N Granulocyte % 54.9 % N 38-83 Lymphocyte % 34.1 % N 25-47 Monocyte % 9.7 % High 1-9 Eosinophil % 0.9 % N 0-6 Basophil % 0.4 % N 0-2 Nucleated Red Blood Cells % 0 N Comp Metabolic Panel 07/09/2016 [facility] Sodium 140 mmol/L N 133-[address] [place] [address] [phone] Potassium 3.6 mmol/L N 3.5-5.0 Chloride 107 mmol/L N 101-111 Co2 Carbon Dioxide 27 mmol/L N 22-32 Anion Gap 6 mmol/L N 2-11 Glucose 77 mg/dL N 70-100 Blood Urea Nitrogen 17 mg/dL N 6-24 Creatinine 0.80 mg/dL N 0.51-0.95 BUN/Creatinine Ratio 21.3 High 8-20 Calcium 9.1 mg/dL N 8.6-10.3 Total Protein 6.5 g/dL N 6.4-8.9 Albumin 4.2 g/dL N 3.2-5.2 Globulin 2.3 g/dL N 2-4 Albumin/Globulin Ratio 1.8 N 1-3 Total Bilirubin 0.20 mg/dL N 0.2-1.0 Alkaline Phosphatase 46 U/L N 34-104 Alt 13 U/L N 7-52 Ast 13 U/L N 13-39 Egfr Non- 84.2 N >60 Egfr 108.3 N >60 27 Iron & Iron Binding 07/09/2016 [facility] Iron 43 g/dL Low 50-212 [address] [place] [address] [phone] Unsaturated Iron Binding 308 g/dL N Total Iron Binding Capacity 351 g/dL N 250-450 % Iron Saturation 12 % Low 15-55 Laboratory test 07/09/2016 [facility] T3 Free 3.30 pg/mL N 2.5 -3.9 28 finding [address] [place] [address] [phone] Free T4 (Free Thyroxine) 0.77 ng/dL N 0.61-1.12 29 TSH (Thyroid Stim Horm) 0.91 mcIU/mL N 0.34-5.60 30 Laboratory test finding 07/09/2016 [facility] Cortisol 3.12 ?g/ dL N [address] [place] [address] [phone] C Reactive Protein 3.71 mg/L N < 5.00 32 Jes Igg AB Reflex 07/09/2016 [facility] SS-A/Ro Antibody <0.2 U N [address] [place] [address] [phone] SS-B/La Antibody <0.2 U N 34 Sm (Capellan) IgG Antibody <0.2 U N 35 U1-nRNP Antibody <0.2 U N 36 Scl-70 (Scleroderma) Antibody <0.2 U N 37 Eulalia-1 Antibody <0.2 U N 38 Celiac Hla DQ1/DQ2 07/09/2016 [facility] Hla-Dqa1 SEE BELOW N [address] [place] [address] [phone] Hla-DQB1 SEE BELOW N 40 Celiac Gene Pairs Present? Yes N Celiac Gene Interpretation See Comment N 41 Celiac Panel 07/09/2016 [facility] Tissue Transglutaminase <1.2 U/mL N [address] [place] [address] [phone] Immunoglobulin A 118 mg/dL N 61 - 356 Celiac Interpretation See Comment N 43 Laboratory test 05/11/2016 [facility] C Reactive < 1.00 N < 5.00 [address] Protein mg/[place] [address] [phone] Arthritis Panel 05/11/2016 [facility] Uric Acid 3.6 mg/dL N 2.3-6.[address] [place] [address] [phone] Erythrocyte Sed Rate 4 mm/Hr N 0-14 Rheumatoid Factor <15 IU/mL N <15 45 Anti-Nuclear Antibody 0.1 U N 46 Cyclic Citrullinated Peptide <15.6 U N 47 Interpretation See Comment N 48 1 Please check labs this week 2 REFERENCE VALUE <=1.0 (Negative) 3 REFERENCE VALUE <20.0 (Negative) 4 Tests for antibodies to dsDNA and JES antigens are not performed automatically unless the ANETTE result is > or= 3.0 U. Studies performed at [facility] indicate that positive ANETTE results <3.0 U are rarely accompanied by positive second order tests. Test Performed by: [facility] - [address] [address] 5 Because ethnic data is not always readily available, this report includes an eGFR for both -Americans and non- Americans. The National Kidney Disease Education Program (NKDEP) does not endorse the use of the MDRD equation for patients that are not between the ages of 18 and 70, are , have extremes of body size, muscle mass, or nutritional status, or are non- or non-. According to the National Kidney Foundation, irrespective of diagnosis, the stage of the disease is based on the level of kidney function: Stage Description GFR(mL/min/1.73 m(2)) 1 Kidney damage with normal or decreased GFR 90 2 Kidney damage with mild decrease in GFR 60-89 3 Moderate decrease in GFR 30-59 4 Severe decrease in GFR 15-29 5 Kidney failure <15 (or dialysis) 6 Normal Range 180 to 914 Indeterminate Range 145 to 180 Deficient Range <145 7 RESULT: If CK result is <100, isoenzyme will not be performed. Test Performed by: [address] [address] 8 Please check 2 days before follow up 9 Acute inflammation: >10.00 10 Because ethnic data is not always readily available, this report includes an eGFR for both -Americans and non- Americans. The National Kidney Disease Education Program (NKDEP) does not endorse the use of the MDRD equation for patients that are not between the ages of 18 and 70, are , have extremes of body size, muscle mass, or nutritional status, or are non- or non-. According to the National [employer], irrespective of diagnosis, the stage of the disease is based on the level of kidney function: Stage Description GFR(mL/min/1.73 m(2)) 1 Kidney damage with normal or decreased GFR 90 2 Kidney damage with mild decrease in GFR 60-89 3 Moderate decrease in GFR 30-59 4 Severe decrease in GFR 15-29 5 Kidney failure <15 (or dialysis) 11 Normal Range 180 to 914 Indeterminate Range 145 to 180 Deficient Range <145 12 Acute inflammation: >10.00 13 Please check this week 14 Because ethnic data is not always readily available, this report includes an eGFR for both -Americans and non- Americans. The National Kidney Disease Education Program (NKDEP) does not endorse the use of the MDRD equation for patients that are not between the ages of 18 and 70, are , have extremes of body size, muscle mass, or nutritional status, or are non- or non-. According to the National Kid[employer] Foundation, irrespective of diagnosis, the stage of the disease is based on the level of kidney function: Stage Description GFR(mL/min/1.73 m(2)) 1 Kidney damage with normal or decreased GFR 90 2 Kidney damage with mild decrease in GFR 60-89 3 Moderate decrease in GFR 30-59 4 Severe decrease in GFR 15-29 5 Kidney failure <15 (or dialysis) 15 Acute inflammation: >10.00 16 Please check today 17 Please check today 18 REFERENCE VALUE <20.0 (Negative) Test Performed by: [place] [address] Motor Equipment Sergeant: Corey Damon II, M.D., Ph.D. 19 Test Performed by: [place] [address] Motor Equipment Sergeant: Corey Damon II, M.D., Ph.D. 20 Normal Range 180 to 914 Indeterminate Range 145 to 180 Deficient Range <145 21 ADDITIONAL INFORMATION This test was developed and its performance characteristics determined by [facility] in a manner consistent with CLIA requirements. This test has not been cleared or approved by the U.S. Food and Drug Administration. Test Performed by: [place] [address] Motor Equipment Sergeant: Corey Damon II, M.D., Ph.D. 22 Please check this week 23 REFERENCE VALUE Not Applicable 24 RESULT: HLA-B27 antigen was not detected. ADDITIONAL INFORMATION Method: Flow Cytometry Performing Laboratory CLIA# [id number] Test Performed by: [facility] - [address] [address] Motor Equipment Sergeant: Corey Damon II, M.D., Ph.D. 25 Serologic response to B. burgdorferi infection is not detected, but cannot rule out early infection during which low or undetectable antibody levels to B. burgdorferi may be present. If clinically indicated, a new serum specimen should be submitted in 7-14 days. Test Performed by: [facility] [place] [address] Motor Equipment Sergeant: Corey Damon II, M.D., Ph.D. 26 Please check this week 27 Because ethnic data is not always readily available, this report includes an eGFR for both -Americans and non- Americans. The National Kidney Disease Education Program (NKDEP) does not endorse the use of the MDRD equation for patients that are not between the ages of 18 and 70, are , have extremes of body size, muscle mass, or nutritional status, or are non- or non-. According to the National Kidney Foundation, irrespective of diagnosis, the stage of the disease is based on the level of kidney function: Stage Description GFR(mL/min/1.73 m(2)) 1 Kidney damage with normal or decreased GFR 90 2 Kidney damage with mild decrease in GFR 60-89 3 Moderate decrease in GFR 30-59 4 Severe decrease in GFR 15-29 5 Kidney failure <15 (or dialysis) 28 Please check this week 29 Please check this week 30 Please check this week 31 AM 8.7-22.4 PM <10 32 Acute inflammation: >10.00 33 REFERENCE VALUE <1.0 (Negative) 34 REFERENCE VALUE <1.0 (Negative) 35 REFERENCE VALUE <1.0 (Negative) 36 REFERENCE VALUE <1.0 (Negative) 37 REFERENCE VALUE <1.0 (Negative) 38 REFERENCE VALUE <1.0 (Negative) Test Performed by: [address] [address] Motor Equipment Sergeant: Corey Damon II, M.D., Ph.D. 39 RESULT: 01:02,05:01 REFERENCE VALUE Not Applicable 40 RESULT: 02:01,06:02 DQ Serologic Equivalent: 2,6 REFERENCE VALUE Not Applicable 41 These genes are permissive for celiac disease. The absence of HLA celiac permissive genes would make the presence of celiac disease unlikely. However, these genes can also be present in the normal population. ADDITIONAL INFORMATION Method: Molecular typing of HLA antigens performed using reverse SSOP and/or SSP methods, reported as serological equivalents and low to medium resolution molecular values. Performing Laboratory CLIA# [id number] Test Performed by: [address] [place] [address] Motor Equipment Sergeant: Corey Damon II, M.D., Ph.D. 42 REFERENCE VALUE <4.0 (Negative) Test Performed by: [place] [address] Motor Equipment Sergeant: Corey Damon II, M.D., Ph.D. 43 Negative serology. Celiac disease unlikely. However, approximately 10% of patients with celiac disease are seronegative. Also, patients who are already adhering to a gluten-free diet may be seronegative. If celiac disease is highly clinically suspected, consider HLA-DQ typing. Test Performed by: [place] [address] Motor Equipment Sergeant: Corey Damon II, M.D., Ph.D. 44 Acute inflammation: >10.00 45 Test Performed by: [place] [address] Motor Equipment Sergeant: Corey Damon II, M.D., Ph.D. 46 REFERENCE VALUE <=1.0 (Negative) 47 REFERENCE VALUE <20.0 (Negative) 48 Tests for antibodies to dsDNA and JES antigens are not performed automatically unless the ANETTE result is > or= 3.0 U. Studies performed at [facility] indicate that positive ANETTE results <3.0 U are rarely accompanied by positive second order tests. Test Performed by: [place] [address] Motor Equipment Sergeant: Corey Damon II, M.D., Ph.D. Procedures Date Code Description Status 07/13/2018 13479 Admin Of Inj Completed 02/09/2018 37608 Admin Of Inj Completed 11/29/2017 04186 Admin Of Inj Completed 08/31/2017 04874 Admin Of Inj Completed 04/25/201728624 Trigger PT Inj(S) Single Or Multiple Points 1 Or 2 Muscles Completed 10/08/2016 Trigger PT Inj(S) Single Or Multiple Points 1 Or 2 Muscles Completed 04/01/2016 24861 Nerve Conduction 03-04 Studies Completed 04/01/2016 19686 Needle Electromyography Complete, Five Or More Muscles Completed Studied 03/03/201638643 Inject/Drain Joint/Bursa Major W/O US Completed 11/05/201544794 Inject/Drain Joint/Bursa Major W/O US Completed 01/27/201585374 Inject/Drain Joint/Bursa Major W/O US Completed 07/17/201411787 Inject/Drain Joint/Bursa Major W/O US Completed 06/29/2013 92337 Carpal Tunnel Release Completed 05/17/2013 24091 Nerve Conduction 03-04 Studies Completed 04/04/201311493 Inject Tendon Sheath Or Ligament Aponeurosis Eg Plantar Completed Fascia 03/21/2013 92462 Rad Exam; Wrist, Comp, Min 3 Views Completed 09/21/2012 23540 Rad Shoulder Comp, Min. 2 Views Completed 06/23/2012 71359 Excision Ganglion Wrist/ Dorsal Or Volar; Primary Completed 06/01/2012 04046 Rad Exam; Wrist, Comp, Min 3 Views Completed Encounters Type Date Location Provider Dx Diagnosis Office Visit 05/08/2018 Rheumatology Services Damián Dugan, M54.5 Low back pain 3:40p Of Hung Dunne D51.9 Vitamin B12 deficiency anemia, unspecified R20.8 Other disturbances of skin sensation M54.16 Radiculopathy, lumbar region Office Visit 04/12/2018 10:20a Rheumatology Damián G47.00 Insomnia, Services Of Hung Dugan M.D. unspecified M06.4 Inflammatory polyarthropathy S96.811D Strain of muscles and tendons at ank/ft level, r foot, subs Office Visit 02/09/2018 Rheumatology Damián M06.4 Inflammatory 10:40a Services Of Hung Dugan M.D. polyarthropathy M79.7 Fibromyalgia D51.9 Vitamin B12 deficiency anemia, unspecified R20.8 Other disturbances of skin sensation Office Visit 11/29/2017 2:40p Rheumatology Damián D51.9 Vitamin B12 Services Of Hung Dugan M.D. deficiency anemia, unspecified M54.5 Low back pain R20.8 Other disturbances of skin sensation Z79.899 Other correction (current) drug therapy M06.4 Inflammatory polyarthropathy Office Visit 08/31/2017 Rheumatology Damián M06.4 Inflammatory 10:00a Services Of Hung Dugan M.D. 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 M54.5 Low back pain R20.8 Other disturbances of skin sensation E53.8 Deficiency of other specified B group vitamins Office Visit 05/30/2017 2:00p Rheumatology Toshia Moseley [facility]romyalgia [facility] Uzair M54.2 Cervicalgia R70.0 Elevated erythrocyte sedimentation rate D64.9 Anemia, unspecified H93.13 Tinnitus, bilateral J32.9 Chronic sinusitis, unspecified Office Visit 04/25/2017 9:40a Rheumatology Toshia Moseley [facility]romy[facility] Uzair M54.2 Cervicalgia M54.5 Low back pain D64.9 Anemia, unspecified Z79.899 Other computer network specialist (current) drug therapy G43.909 Migraine, unsp, not intractable, without status migrainosus Office Visit 12/24/2016 10:00a Rheumatology Toshia Moseley [facility] Uzair M54.2 Cervicalgia R20.2 Paresthesia of skin Office Visit 11/17/2016 2:00p Neurosurgery Tylor Zhao, M54.5 Low back pain [facility] AT .[place] Office Visit 11/02/2016 11:40a Rheumatology Toshia Moseley [facility] Darek.Venkata M54.5 Low back pain M54.2 Cervicalgia D64.9 Anemia, unspecified Office Visit 10/29/2016 11:00a Neurosurgery Paola Doty, R20.2 Paresthesia of [facility] PA-C skin M54.16 Radiculopathy, lumbar region Office Visit 10/08/2016 1:00p Rheumatology Toshia Moseley [facility]romy[facility] Uzair M54.2 Cervicalgia R20.2 Paresthesia of skin M25.511 Pain in right shoulder M53.82 Other specified dorsopathies, cervical region Office Visit 09/24/2016 12:40p Rheumatology Paige Moseley.Carolyn Fibromyalgia Services Of Hung OswaldJovon M54.2 Cervicalgia D64.9 Anemia, unspecified K13.79 Other lesions of oral mucosa Office Visit 09/02/2016 9:40a Rheumatology Paige Moseley.Carolyn Fibromyalgia Services Of Water/Wastewater Engineer DarekJovon R20.2 Paresthesia of skin M25.511 Pain in right shoulder M47.812 Spondylosis w/o myelopathy or radiculopathy, cervical region Office Visit 07/30/2016 11:20a Rheumatology Paige Moseley.Carolyn Fibromyalgia Services Of Water/Wastewater Engineer DarekJovon Z79.52 retirement (current) use of systemic steroids R10.2 Pelvic and perineal pain R10.84 Generalized abdominal pain Office Visit 07/07/2016 2:00p Rheumatology Services Damián Dugan M54.2 Cervicalgia Of Water/Wastewater Engineer DarekJovon M79.7 Fibromyalgia R20.2 Paresthesia of skin M35.01 Sicca syndrome with keratoconjunctivitis Z79.52 retirement (current) use of systemic steroids G43.719 Chronic migraine w/o aura, intractable, w/o stat migr Office Visit 06/11/2016 3:30p Orthopedic Geri Burch.41 Impingement Services Of [place] syndrome of right C.M.A. shoulder M54.2 Cervicalgia M79.7 Fibromyalgia Office Visit 05/25/2016 3:15p Orthopedic Geri Burch.41 Impingement Services Of [place] syndrome of right C.M.A. 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 Syndrome [place] Office Visit 04/18/2013 Orthopedic Jami 727.05 Tenosynovitis Hand 2:30p Services Of Hung Mosquera M.D. & Wrist Other [place] 354.2 Lesion Ulnar Nerve 354.0 Carpal Tunnel Syndrome Office Visit 03/21/2013 2:45p Orthopedic Hyacinth Montanez9.44 Pain Joint Hand Services Of Hung Oswald.Nadir. [place] Office Visit 10/30/2012 9:45a Orthopedic Jami Mosquera 719.41 Pain Joint Services Of Hung Oswald.D. Shoulder Region [facility] [place] 723.1 Cervicalgia Office Visit 10/16/2012 11:30a Orthopedic Hyacinth Montanez9.41 Pain Joint Services Of Hung Oswald.D. Shoulder Region [place] 726.10 Bursae & Tendon Disorders Shoulder Region Unspec Office Visit 09/21/2012 9:30a [employer] Hyacinth Montanez9.41 Pain Joint of Hung M.D. Shoulder Region 726.10 Bursae & Tendon Disorders Shoulder Region Unspec Office Visit 08/17/2012 9:30a [employer] Jami Mosquera 727.41 Ganglion Joint of Hung Oswald.D. 719.44 Pain Joint Hand Office Visit 06/01/2012 9:15a [employer] Jami Mosquera 719.44 Pain Joint of Hung Oswald.D. Hand 727.41 Ganglion Joint Plan of Treatment Future Appointment(s):09/08/2018 12:20 pm - Damián Dugan M.D. at [facility]07/31/2018 - Damián Dugan M.D.M54.5 Low back painN28.1 Cyst of kidney, acquiredNew Xrays:US Renal Complete, Ordered: 07/31/18
--- OUTSIDE RECORDS SUMMARY | 2018-08-11 13:43 | XMS REPORT ---
:1985 External Reference #:[id number] Author Organization [facility] Address [address] [facility] [place] [address] Phone [phone] Care Team Providers Name Role Phone Dorothy Rankin MD Primary Care Physician Unavailable Payers Type Date Identification Numbers Payment Provider Subscriber Commercial Expires: Policy Number: [id number] [employer] Isa Patti 2016 Medicaid PayID: [id number] [address] [address] [place] [address] Commercial Effective: 2016 Policy Number: [id number] [employer]ave[employer] Isa Patti Group Number: [id number] [address] PayID: [id number] [place] [address] Problems Date Description Provider Status Onset: 04/01/2016 [...] Fibromyalgia Social History Type Date Description Comments Occupation Disabled Back ETOH Use Denies alcohol use Recreational Drug Use 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 area daily, 12 hours on, 12 hours off B12 Fast 05/08 Active Tablets 5000mcg 90tab sublingual D51.9 Damián Dispers s daily Uzair Dugan Cyanocobalamin 08/31 [...] 08/11 Hx Tablets 75mg 30tab take one Sodium DR s capsule/tabl Kailee, - et by [...] 5 Kailee, - days then 2 M.D. 12/22 tabs daily /2015 for 5 days then 1 tab daily [...] 300-30mg 30tab 1 po q 4-6 Jami [facility] #3 s hr prn pain Demetri - M.D. 07/16 Ultracet 06/15 Hx Tablets [...] three - times daily 12/24 as needed for anxiety Prednisone Hx Tablets 10mg 10mg [...] Form Strength Qnty SIG Indications Ordering Provider B-12 Injection 07/13/ Administered Injection Damián 2017 Uzair Dugan B-12 Injection 02/09/ Administered Injection Damián 2018 Uzair Dugan B-12 Injection 11/29/ Administered Injection Damián 2018 Uzair Dugan B12 Provided By 08/31/ Administered Injection Dmaián Patient 2016 Uzair Dugan Triamcinolone 04/25/ Administered Injection Damián (Kenalog) 2016 Uzair Dugan Depomedrol 40MG 03/03/ Administered Injection Jami 2015 Uzair Mosquera Depomedrol 40MG 11/05/ Administered Injection Jami 2015 Uzair Mosquera Depomedrol 80MG 01/27/ Administered Injection Jami 2014 Uzair Mosquera Depomedrol 80MG 07/17/ Administered Injection Jami 2013 Uzair Mosquera Depomedrol 80MG 04/04/ Administered Injection Jami 2012 Uzair Mosquera Vital Signs Date Vital Result Comment 07/13/2018 Height 62 inches 5'2" Weight 109.00 lb Heart Rate 82 /min BP Systolic Sitting 118 mmHg BP Diastolic Sitting 62 mmHg Pain Level 8 O2 % BldC Oximetry 98 % BMI (Body Mass Index) 19.9 kg/m2 05/08/2018 Height 62 inches 5'2" Weight 120.00 lb Heart Rate 72 /min BP Systolic Sitting 124 mmHg BP Diastolic Sitting 82 mmHg Respiratory Rate 14 /min Pain Level 9 BMI (Body Mass Index) 21.9 kg/m2 04/12/2018 Height 62 inches 5'2" Heart Rate 69 /min BP Systolic Sitting 89 mmHg BP Diastolic Sitting 58 mmHg Respiratory Rate 14 /min Pain Level 9 02/09/2018 Height 62 inches 5'2" Weight 120.00 lb Heart Rate 72 /min BP Systolic 108 mmHg BP Diastolic 65 mmHg Pain Level 4 O2 % BldC Oximetry 97 % BMI (Body Mass Index) 21.9 kg/m2 11/29/2017 Height 62 inches 5'2" Weight 117.00 lb Heart Rate 72 /min BP Systolic Sitting 103 mmHg BP Diastolic Sitting 70 mmHg Respiratory Rate 14 /min Pain Level 6 BMI (Body Mass Index) 21.4 kg/m2 08/31/2017 Height 62 inches 5'2" Weight 123.00 lb Heart Rate 89 /min BP Systolic Sitting 104 mmHg BP Diastolic Sitting 70 mmHg Respiratory Rate 14 /min Pain Level 3 BMI (Body Mass Index) 22.5 kg/m2 05/30/2017 Height 62 inches 5'2" Weight 119.00 lb Heart Rate 78 /min BP Systolic Sitting 109 mmHg BP Diastolic Sitting 68 mmHg Respiratory Rate 14 /min Pain Level 5 BMI (Body Mass Index) 21.8 kg/m2 04/25/2017 Height 62 inches 5'2" Weight 118.25 lb Heart Rate 60 /min BP Systolic Sitting 102 mmHg BP Diastolic Sitting 60 mmHg Respiratory Rate 14 /min Body Temperature 98.1 F Pain Level 8 BMI (Body Mass Index) 21.6 kg/m2 12/24/2016 Height 62 inches 5'2" Weight 113.00 lb Heart Rate 70 /min BP Systolic Sitting 99 mmHg BP Diastolic Sitting 57 mmHg Body Temperature 97.7 F Pain Level 4 BMI (Body Mass Index) 20.7 kg/m2 11/17/2016 Height 62 inches 5'2" Weight 105.00 lb Heart Rate 76 /min BP Systolic Sitting 98 mmHg BP Diastolic Sitting 60 mmHg Respiratory Rate 18 /min Pain Level 3 BMI (Body Mass Index) 19.2 kg/m2 11/02/2016 Height 62 inches 5'2" Weight 107.00 lb Heart Rate 76 /min BP Systolic Sitting 102 mmHg BP Diastolic Sitting 68 mmHg Body Temperature 98.5 F Pain Level 2 BMI (Body Mass Index) 19.6 kg/m2 10/29/2016 Height 62 inches 5'2" Weight 109.00 lb Heart Rate 62 /min BP Systolic Sitting 110 mmHg BP Diastolic Sitting 70 mmHg Pain Level 1 BMI (Body Mass Index) 19.9 kg/m2 10/08/2016 Height 62 inches 5'2" Heart Rate 88 /min BP Systolic Sitting 92 mmHg BP Diastolic Sitting 60 mmHg Respiratory Rate 14 /min Body Temperature 95.8 F Pain Level 10 09/24/2016 Height 62 inches 5'2" Weight 110.00 lb Heart Rate 84 /min BP Systolic Sitting 100 mmHg BP Diastolic Sitting 60 mmHg Respiratory Rate 14 /min Body Temperature 98.3 F Pain Level 6 BMI (Body Mass Index) 20.1 kg/m2 09/02/2016 Height 62 inches 5'2" Weight 110.50 lb Heart Rate 76 /min BP Systolic Sitting 90 mmHg BP Diastolic Sitting 60 mmHg Respiratory Rate 14 /min Body Temperature 97.0 F Pain Level 8 BMI (Body Mass Index) 20.2 kg/m2 07/30/2016 Height 62 inches 5'2" Weight 111.00 lb Heart Rate 80 /min BP Systolic Sitting 100 mmHg BP Diastolic Sitting 60 mmHg Respiratory Rate 14 /min Body Temperature 98.7 F Pain Level 4 BMI (Body Mass Index) 20.3 kg/m2 07/07/2016 Height 62 inches 5'2" Weight 105.38 lb Heart Rate 72 /min BP Systolic Sitting 90 mmHg BP Diastolic Sitting 60 mmHg Respiratory Rate 14 /min Body Temperature 98.0 F Pain Level 7 BMI (Body Mass Index) 19.3 kg/m2 06/11/2016 Height 62 inches 5'2" Weight 101.00 lb per pt Respiratory Rate 18 /min Pain Level 10 BMI (Body Mass Index) 18.5 kg/m2 05/25/2016 Height 62 inches 5'2" Weight 101.00 lb Heart Rate 60 /min Respiratory Rate 16 /min Pain Level 8 BMI (Body Mass Index) 18.5 kg/m2 05/06/2016 Height 62 inches 5'2" Weight 101.00 lb Pain Level 3 BMI (Body Mass Index) 18.5 kg/m2 04/16/2016 Height 62 inches 5'2" Weight 101.00 lb Heart Rate 62 /min BP Systolic Sitting 92 mmHg BP Diastolic Sitting 52 mmHg Pain Level 3 11/19 BMI (Body Mass Index) 18.5 kg/m2 04/01/2016 Height 62 inches 5'2" Weight 101.00 lb Heart Rate 64 /min BP Systolic Sitting 110 mmHg BP Diastolic Sitting 66 mmHg Respiratory Rate 16 /min BMI (Body Mass Index) 18.5 kg/m2 03/03/2016 Weight 100.00 lb Heart Rate 68 /min BP Systolic Sitting 110 mmHg BP Diastolic Sitting 62 mmHg 01/27/2015 Weight 105.00 lb Heart Rate 78 /min BP Systolic Sitting 124 mmHg BP Diastolic Sitting 82 mmHg 07/17/2014 Height 62 inches 5'2" Weight 106.00 lb Heart Rate 70 /min BP Systolic Sitting 106 mmHg BP Diastolic Sitting 72 mmHg BMI (Body Mass Index) 19.4 kg/m2 06/25/2013 Height 62 inches 5'2" Weight 105.00 lb Heart Rate 76 /min BP Systolic Sitting 120 mmHg BP Diastolic Sitting 80 mmHg BMI (Body Mass Index) 19.2 kg/m2 06/15/2012 Weight 115.00 lb Heart Rate 78 /min BP Systolic Sitting 122 mmHg BP Diastolic Sitting 78 mmHg BMI (Body Mass Index) 3233.8 kg/m2 Results Test Date Test Result H/L Range Note Laboratory test finding 11/26/2017 Erythrocyte Sed Rate 5 mm/Hr 0-14 1 C Reactive Protein 1.12 mg/L < 5.00 2 CBC Auto Diff 11/26/2017 White Blood Count 6.2 10^3/uL 3.5-10.8 Red Blood Count 4.35 10^6/uL 4.0-5.4 Hemoglobin 13.4 g/dL 12.0-16.0 Hematocrit 39 % 35-47 Mean Corpuscular Volume 89 fL 80-97 Mean Corpuscular Hemoglobin 31 pg 27-31 Mean Corpuscular HGB Conc 35 g/dL 31-36 Red Cell Distribution Width 13 % 10.5-15 Platelet Count 198 10^3/uL 150-450 Mean Platelet Volume 9 um3 7.4-10.4 Abs Neutrophils 4.5 10^3/uL 1.5-7.7 Abs Lymphocytes 1.1 10^3/uL 1.0-4.8 Abs Monocytes 0.6 10^3/uL 0-0.8 Abs Eosinophils 0.1 10^3/uL 0-0.6 Abs Basophils 0 10^3/uL 0-0.2 Abs Nucleated RBC 0 10^3/uL Granulocyte % 72.2 % 38-83 Lymphocyte % 17.3 % Low 25-47 Monocyte % 9.3 % High 0-7 Eosinophil % 0.9 % 0-6 Basophil % 0.3 % 0-2 Nucleated Red Blood Cells % 0.1 Comp Metabolic Panel 11/26/2017 Sodium 137 mmol/L 133-145 Potassium 3.8 mmol/L 3.5-5.0 Chloride 107 mmol/L 101-111 Co2 Carbon Dioxide 25 mmol/L 22-32 Anion Gap 5 mmol/L 2-11 Glucose 90 mg/dL 70-100 Blood Urea Nitrogen 10 mg/dL 6-24 Creatinine 0.74 mg/dL 0.51-0.95 BUN/Creatinine Ratio 13.5 8-20 Calcium 9.2 mg/dL 8.6-10.3 Total Protein 6.5 g/dL 6.4-8.9 Albumin 4.3 g/dL 3.2-5.2 Globulin 2.2 g/dL 2-4 Albumin/Globulin Ratio 2.0 1-3 Total Bilirubin 0.50 mg/dL 0.2-1.0 Alkaline Phosphatase 48 U/L 34-104 Alt 10 U/L 7-52 Ast 15 U/L 13-39 Egfr Non- 91.5 >60 Egfr 117.7 >60 3 Laboratory test finding 11/26/2017 Vitamin B12 581 pg/mL 180-914 4 Laboratory test finding 05/18/2017 C Reactive Protein < 1.00 mg/L < 5.00 5 Erythrocyte Sed Rate 47 mm/Hr High 0-14 6 Comp Metabolic Panel 05/18/2017 Sodium 140 mmol/L 133-145 Potassium 3.5 mmol/L 3.5-5.0 Chloride 104 mmol/L 101-111 Co2 Carbon Dioxide 30 mmol/L 22-32 Anion Gap 6 mmol/L 2-11 Glucose 84 mg/dL 70-100 Blood Urea Nitrogen 19 mg/dL 6-24 Creatinine 0.87 mg/dL 0.51-0.95 BUN/Creatinine Ratio 21.8 High 8-20 Calcium 9.8 mg/dL 8.6-10.3 Total Protein 6.5 g/dL 6.4-8.9 Albumin 4.3 g/dL 3.2-5.2 Globulin 2.2 g/dL 2-4 Albumin/Globulin Ratio 2.0 1-3 Total Bilirubin 0.30 mg/dL 0.2-1.0 Alkaline Phosphatase 57 U/L 34-104 Alt 11 U/L 7-52 Ast 15 U/L 13-39 Egfr Non- 76.4 >60 Egfr 98.3 >60 7 CBC Auto Diff 05/18/2017 White Blood Count 7.7 10^3/uL 3.5-10.8 Red Blood Count 4.23 10^6/uL 4.0-5.4 Hemoglobin 13.2 g/dL 12.0-16.0 Hematocrit 38 % 35-47 Mean Corpuscular Volume 90 fL 80-97 Mean Corpuscular Hemoglobin 31 pg 27-31 Mean Corpuscular HGB Conc 35 g/dL 31-36 Red Cell Distribution Width 13 % 10.5-15 Platelet Count 227 10^3/uL 150-450 Mean Platelet Volume 9 um3 7.4-10.4 Abs Neutrophils 5.3 10^3/uL 1.5-7.7 Abs Lymphocytes 1.7 10^3/uL 1.0-4.8 Abs Monocytes 0.5 10^3/uL 0-0.8 Abs Eosinophils 0.1 10^3/uL 0-0.6 Abs Basophils 0 10^3/uL 0-0.2 Abs Nucleated RBC 0 10^3/uL Granulocyte % 68.7 % 38-83 Lymphocyte % 22.6 % Low 25-47 Monocyte % 7.0 % 1-9 Eosinophil % 1.3 % 0-6 Basophil % 0.4 % 0-2 Nucleated Red Blood Cells % 0 Laboratory test finding 09/02/2016 C Reactive Protein 1.12 mg/L < 5.00 8 Erythrocyte Sed Rate 4 mm/Hr 0-14 9 Creatine Kinase(CK) 41 U/L 10-223 10 Cyclic Citrullinated Pep Igg <15.6 U 11 Rheumatoid Factor <15 IU/mL <15 12 Laboratory test finding 07/09/2016 Erythrocyte Sed Rate 0 mm/Hr 0-14 13 Hla B27 07/09/2016 Hla B27 Negative 14 Hla B27 Interp See Comment 15 Laboratory test finding 07/09/2016 Lyme Disease Serology Negative Negative 16 Creatine Kinase(CK) 27 U/L 10-223 17 Laboratory test finding 07/09/2016 Vitamin B12 446 pg/mL 180-914 18 Vitamin D, 1,25 Dihydroxy 79 pg/mL 18-78 19 CBC Auto Diff 07/09/2016 White Blood Count 6.7 10^3/uL 3.5-10.8 Red Blood Count 4.41 10^6/uL 4.0-5.4 Hemoglobin 13.5 g/dL 12.0-16.0 Hematocrit 41 % 35-47 Mean Corpuscular Volume 92 fL 80-97 Mean Corpuscular Hemoglobin 31 pg 27-31 Mean Corpuscular HGB Conc 33 g/dL 31-36 Red Cell Distribution Width 13 % 10.5-15 Platelet Count 231 10^3/uL 150-450 Mean Platelet Volume 8 um3 7.4-10.4 Abs Neutrophils 3.7 10^3/uL 1.5-7.7 Abs Lymphocytes 2.3 10^3/uL 1.0-4.8 Abs Monocytes 0.7 10^3/uL 0-0.8 Abs Eosinophils 0.1 10^3/uL 0-0.6 Abs Basophils 0 10^3/uL 0-0.2 Abs Nucleated RBC 0 10^3/uL Granulocyte % 54.9 % 38-83 Lymphocyte % 34.1 % 25-47 Monocyte % 9.7 % High 1-9 Eosinophil % 0.9 % 0-6 Basophil % 0.4 % 0-2 Nucleated Red Blood Cells % 0 Comp Metabolic Panel 07/09/2016 Sodium 140 mmol/L 133-145 Potassium 3.6 mmol/L 3.5-5.0 Chloride 107 mmol/L 101-111 Co2 Carbon Dioxide 27 mmol/L 22-32 Anion Gap 6 mmol/L 2-11 Glucose 77 mg/dL 70-100 Blood Urea Nitrogen 17 mg/dL 6-24 Creatinine 0.80 mg/dL 0.51-0.95 BUN/Creatinine Ratio 21.3 High 8-20 Calcium 9.1 mg/dL 8.6-10.3 Total Protein 6.5 g/dL 6.4-8.9 Albumin 4.2 g/dL 3.2-5.2 Globulin 2.3 g/dL 2-4 Albumin/Globulin Ratio 1.8 1-3 Total Bilirubin 0.20 mg/dL 0.2-1.0 Alkaline Phosphatase 46 U/L 34-104 Alt 13 U/L 7-52 Ast 13 U/L 13-39 Egfr Non- 84.2 >60 Egfr 108.3 >60 20 Jes Igg AB Reflex 07/09/2016 SS-A/Ro Antibody <0.2 U 21 SS-B/La Antibody <0.2 U 22 Sm (Capellan) IgG Antibody <0.2 U 23 U1-nRNP Antibody <0.2 U 24 Scl-70 (Scleroderma) Antibody <0.2 U 25 Eulalia-1 Antibody <0.2 U 26 Laboratory test finding 07/09/2016 Cortisol 3.12 ?g/dL 27 C Reactive Protein 3.71 mg/L < 5.00 28 Iron & Iron Binding Capacity 07/09/2016 Iron 43 g/dL Low 50-212 Unsaturated Iron Binding 308 g/dL Total Iron Binding Capacity 351 g/dL 250-450 % Iron Saturation 12 % Low 15-55 Laboratory test finding 07/09/2016 T3 Free 3.30 pg/mL 2.5-3.9 29 Free T4 (Free Thyroxine) 0.77 ng/dL 0.61-1.12 30 TSH (Thyroid Stim Horm) 0.91 mcIU/mL 0.34-5.60 31 Celiac Hla DQ1/DQ2 07/09/2016 Hla-Dqa1 SEE BELOW 32 Hla-DQB1 SEE BELOW 33 Celiac Gene Pairs Present? Yes Celiac Gene Interpretation See Comment 34 Celiac Panel 07/09/2016 Tissue Transglutaminase IgA Ab <1.2 U/mL 35 Immunoglobulin A 118 mg/dL 61 - 356 Celiac Interpretation See Comment 36 Arthritis Panel 05/11/2016 Uric Acid 3.6 mg/dL 2.3-6.6 Erythrocyte Sed Rate 4 mm/Hr 0-14 Rheumatoid Factor <15 IU/mL <15 37 Anti-Nuclear Antibody 0.1 U 38 Cyclic Citrullinated Peptide <15.6 U 39 Interpretation See Comment 40 Laboratory test finding 05/11/2016 C Reactive Protein < 1.00 mg/L < 5.00 41 1 Please check 2 days before follow up 2 Acute inflammation: >10.00 3 Because ethnic data is not always readily [...] 15-29 5 Kidney failure <15 (or dialysis) 4 Normal Range 180 to 914 Indeterminate Range 145 to 180 Deficient Range <145 5 Acute inflammation: >10.00 6 Please check this week 7 Because ethnic data is not always readily [...] 15-29 5 Kidney failure <15 (or dialysis) 8 Acute inflammation: >10.00 9 Please check today 10 Please check today 11 REFERENCE VALUE <20.0 (Negative) Test Performed by: [place] [address] Bench Tool Maker: Corey Damon II, M.D., Ph.D. 12 Test Performed by: [place] [address] Bench Tool Maker: Corey Damon II, M.D., Ph.D. 13 Please check this week 14 REFERENCE VALUE Not Applicable 15 RESULT: HLA-B27 antigen was not detected. ADDITIONAL INFORMATION Method: Flow Cytometry Performing Laboratory CLIA# [id number] Test Performed by: [place] [address] Bench Tool Maker: Corey Damon II, M.D., Ph.D. 16 Serologic response to B. burgdorferi infection is not detected, but cannot rule out early infection during which low or undetectable antibody levels to B. burgdorferi may be present. If clinically indicated, a new serum specimen should be submitted in 7-14 days. Test Performed by: [facility] [place] [address] Bench Tool Maker: Corey Damon II, M.D., Ph.D. 17 Please check this week 18 Normal Range 180 to 914 Indeterminate Range 145 to 180 Deficient Range <145 19 ADDITIONAL INFORMATION This test was developed and its performance characteristics determined by [facility] in a manner consistent with CLIA requirements. This test has not been cleared or approved by the U.S. Food and Drug Administration. Test Performed by: [place] [address] Bench Tool Maker: Corey Damon II, M.D., Ph.D. 20 Because ethnic data is not always readily [...] 15-29 5 Kidney failure <15 (or dialysis) 21 REFERENCE VALUE <1.0 (Negative) 22 REFERENCE VALUE <1.0 (Negative) 23 REFERENCE VALUE <1.0 (Negative) 24 REFERENCE VALUE <1.0 (Negative) 25 REFERENCE VALUE <1.0 (Negative) 26 REFERENCE VALUE <1.0 (Negative) Test Performed by: [place] [address] Bench Tool Maker: Corey Damon II, M.D., Ph.D. 27 AM 8.7-22.4 PM <10 28 Acute inflammation: >10.00 29 Please check this week 30 Please check this week 31 Please check this week 32 RESULT: 01:02,05:01 REFERENCE VALUE Not Applicable 33 RESULT: 02:01,06:02 DQ Serologic Equivalent: 2,6 REFERENCE VALUE Not Applicable 34 These genes are permissive for celiac disease. The absence of HLA celiac permissive genes would make the presence of celiac disease unlikely. However, these genes can also be present in the normal population. ADDITIONAL INFORMATION Method: Molecular typing of HLA antigens performed using reverse SSOP and/or SSP methods, reported as serological equivalents and low to medium resolution molecular values. Performing Laboratory CLIA# [id number] Test Performed by: [place] [address] Bench Tool Maker: Corey Damon II, M.D., Ph.D. 35 REFERENCE VALUE <4.0 (Negative) Test Performed by: [place] [address] Bench Tool Maker: Corey Damon II, M.D., Ph.D. 36 Negative serology. Celiac disease unlikely. However, approximately 10% of patients with celiac disease are seronegative. Also, patients who are already adhering to a gluten-free diet may be seronegative. If celiac disease is highly clinically suspected, consider HLA-DQ typing. Test Performed by: [place] [address] Bench Tool Maker: Corey Damon II, M.D., Ph.D. 37 Test Performed by: [place] [address] Bench Tool Maker: Corey Damon II, M.D., Ph.D. 38 REFERENCE VALUE <=1.0 (Negative) 39 REFERENCE VALUE <20.0 (Negative) 40 Tests for antibodies to dsDNA and JES antigens are not performed automatically unless the ANETTE result is > or= 3.0 U. Studies performed at [facility] indicate that positive ANETTE results <3.0 U are rarely accompanied by positive second order tests. Test Performed by: [facility] - [address] [address] Bench Tool Maker: Corey Damon II, M.D., Ph.D. 41 Acute inflammation: >10.00 Procedures Date CPT Code Description Status 07/13/2018 49513 Admin Of Inj Completed 02/09/2018 56052 Admin Of Inj Completed 11/29/2017 08406 Admin Of Inj Completed 08/31/2017 06649 Admin Of Inj Completed 04/25/201789236 Trigger PT Inj(S) Single Or Multiple Points 1 Or 2 Completed Muscles 10/08/201623292 Trigger PT Inj(S) Single Or Multiple Points 1 Or 2 Completed Muscles 04/01/2016 01249 Nerve Conduction 03-04 Studies Completed 04/01/2016 76141 Needle Electromyography Complete, Five Or More Muscles Completed Studied 03/03/201628378 Inject/Drain Joint/Bursa Major W/O US Completed 11/05/201518631 Inject/Drain Joint/Bursa Major W/O US Completed 01/27/201508650 Inject/Drain Joint/Bursa Major W/O US Completed 07/17/201409963 Inject/Drain Joint/Bursa Major W/O US Completed 06/29/2013 51282 Carpal Tunnel Release Completed 05/17/2013 26220 Nerve Conduction 03-04 Studies Completed 04/04/201366158 Inject Tendon Sheath Or Ligament Aponeurosis Eg Plantar Completed Fascia 03/21/2013 31175 Rad Exam; Wrist, Comp, Min 3 Views Completed 09/21/2012 60891 Rad Shoulder Comp, Min. 2 Views Completed 06/23/2012 38738 Excision Ganglion Wrist/ Dorsal Or Volar; Primary Completed 06/01/2012 71096 Rad Exam; Wrist, Comp, Min 3 Views Completed Encounters Type Date Location Provider CPT E/M Dx Office Visit 07/13/2018 [facility]umatology Services Damián Dugan M.D. 99938 M06.4 2:00p Of [facility] Z79.899 D51.9 M79.7 Office Visit 05/08/2018 3:40p [facility] Of Damián Dugan, 68585 M54.5 [employer] Professor M.D. D51.9 R20.8 M54.16 Office Visit 04/12/2018 10:20a [facility] Services Damián Dugan 96749 G47.00 Of Hung M.D. M06.4 S96.811D Office Visit 02/09/2018 10:40a [facility] Of Damián Dugan, 67582 M06.4 [employer] Professor M.D. M79.7 D51.9 R20.8 Office Visit 11/29/2017 2:40p [facility] Of Damián Dugan, 53668 D51.9 Children[employer] Literature Professor M.D. M54.5 R20.8 Z79.899 M06.4 Office Visit 08/31/2017 10:00a [facility] Of Damián Dugan, 67012 M06.4 Hung M.D. Z79.899 M54.5 R20.8 E53.8 Office Visit 05/30/2017 2:00p [facility] Of Damián Dugan, 58806 M79.7 Hung M.D. M54.2 R70.0 D64.9 H93.13 J32.9 Office Visit 04/25/2017 9:40a [facility] Of Damián Dugan, 70101 M79.7 Hung M.D. M54.2 M54.5 D64.9 Z79.899 G43.909 Office Visit 12/24/2016 10:00a [facility] Of Damián Dugan, 39717 M79.7 [employer] Professor M.DAlexander M54.2 R20.2 Office Visit 11/17/2016 2:00p Neurosurgery Services Tylor Zhao M.D. 69065 M54.5 Of [employer] [facility] AT [facility] Office Visit 11/02/2016 11:40a [facility]umatology Services Damián Dugan M.D. 34206 M79.7 Of [employer] Professor M54.5 M54.2 D64.9 Office Visit 10/29/2016 11:00a Neurosurgery Services Of Paola Doty PA-C 55540 R20.2 Children[employer] Literature Professor M54.16 Office Visit 10/08/2016 1:00p Rheumatology Services Of Damián Dugan, 25665 M79.7 Children[employer] Literature Professor M.D. M54.2 R20.2 M25.511 M53.82 Office Visit 09/24/2016 12:40p [facility] Of Damián Dugan, 86847 M79.7 Children[employer]S Literature Professor M.D. M54.2 D64.9 K13.79 Office Visit 09/02/2016 9:40a [facility] Of Damián Dugan, 98593 M79.7 Children[employer] Literature Professor M.D. R20.2 M25.511 M47.812 Office Visit 07/30/2016 11:20a [facility] Of Damián Dugan, 95607 M79.7 Children[employer] Literature Professor M.D. Z79.52 R10.2 R10.84 Office Visit 07/07/2016 2:00p [facility]ology Services Of Damián Dugan, 77390 M54.2 [employer] Professor M.D. M79.7 R20.2 M35.01 Z79.52 G43.719 Office Visit 06/11/2016 3:30p [facility] [address] M75.41 C.M.A. M54.2 M79.7 Office Visit 05/25/2016 3:15p [facility] [address] M75.41 C.M.A. M54.2 G54.3 Office Visit 05/06/2016 8:15a [place] [address] M75.41 C.M.A. M54.2 G54.3 Office Visit 04/16/2016 3:00p [place] [address] M75.41 Children[employer] Literature Professor AT [place] M54.2 G54.3 Office Visit 05/30/2013 3:15p Orthopedic Services Jami Mosquera 58417 354.0 Of [facility] Office Visit 04/18/2013 2:30p Orthopedic Services Jami Mosquera 88605 727.05 Of [facility] 354.2 354.0 Office Visit 03/21/2013 2:45p Orthopedic Services Jami Mosquera 34659 719.44 Of [facility] Office Visit 10/30/2012 9:45a Orthopedic Services Jami Mosquera 90141 719.41 Of [facility] 723.1 Office Visit 10/16/2012 11:30a Orthopedic Services Jami Mosquera 49017 719.41 Of [facility] 726.10 Office Visit 09/21/2012 9:30a [employer] of Jami Mosquera 06651 719.41 [facility] Darek.Venkata 726.10 Office Visit 08/17/2012 9:30a [employer] of Jami Mosquera 59893 727.41 [facility] Darek.Venkata 719.44 Office Visit 06/01/2012 9:15a [employer] of Jami Mosquera 41470 719.44 [facility] Darek.Venkata 727.41 Plan of Care Future Appointment(s):09/08/2018 12:20 pm - Damián Dugan M.D. at [facility]07/13/2018 - Damián Dugan M.D.M06.4 Inflammatory cmbdzholndcolnrP42.899 Other medical terminologist (current) drug therapyFollow up:Follow up in 6 to 8 weeks or sooner if fjrmwzW71.9 Vitamin B12 deficiency anemia, lobgfecpzbsA64.7 Fibromyalgia
[2018-08-11 14:08] VITALS: BP 125/55
--- NOTE | 2018-08-11 14:58 | UC ---
Back Pain HPI - HPI Summary HPI Summary: 33 y/o female presents to the urgent care c/o exacerbation of her chronic back pain s/p lifting something about 2 weeks ago. Pt reports she felt something pop. Pain is in the lower back and radiating to her tailbone, specially w/ sitting and standing up. Pt states she saw her PCP DR Brady about 1 week ago and was given Lidocaine injection which help only for a few days. Now pain returned. She requests and X-ray since something new may have happened to her lower back. Pain is 6/10 w/ certain movement. She has taken Ibuprofen PO 600mg PO to alleviate symptoms. Last dose taken was at 0600am today. Pt w/ PMHX of fibromyalgia. Pt denies fever. urinary symptoms, saddle anesthesia, urinary or fecal incontinence, numbness or tingling sensation over the lower extremities, SOB, chest pain, abdominal pain, N/V/D. - History of Current Complaint Chief Complaint: UCBackPain Stated Complaint: BACK PAIN Time Seen by Provider: 08/11/18 14:57 Hx Obtained From: Patient Hx Last Menstrual Period: tubal ?: No Onset/Duration: Gradual Onset, Lasting Weeks - several years, Worse Since - yesterday Timing: Constant Severity Initially: Mild Severity Currently: Moderate Pain Intensity: 6 Pain Scale Used: 0-10 Numeric Back Pain: Is Discrete @ - lower back, Radiates To - B/L legs Character: Dull, Spasmodic, Burning Aggravating Factor(s): Movement, Lifting, Bending Alleviating Factor(s): Rest Associated Signs And Symptoms: Positive: Negative. Negative: Swelling, Redness , Bruising, Fever, Weakness, Abdominal Pain, Flank Pain, Bladder Incontinence, Bowel Incontinence, Weight Loss, Pain with Weight Bearing - Risk Factors AAA Risk Factors: Negative TAD Risk Factors: Negative Cauda Equina Risk Factors: Negative Epidural Abscess Risk Factors: Negative - Allergies/Home Medications Allergies/Adverse Reactions: Allergies Allergy/AdvReac Type Severity Reaction Status Date / Time sulfamethoxazole Allergy Diarrhea Verified 08/11/18 14:08 [From Bactrim] trimethoprim [From Bactrim] Allergy Diarrhea Verified 08/11/18 14:08 Home Medications: Home Medications Cyclobenzaprine TAB* [Flexeril 10 MG TAB*] 10 mg PO BID PRN 08/11/18 [History Confirmed 08/11/18] PMH/Surg Hx/FS Hx/Imm Hx Previously Healthy: Yes Other Endocrine History: fibromyalgia - Surgical History Surgical History: Yes Surgery Procedure, Year, and Place: -01/26/12;GANGLION CYST ON [facility] -06/23;. uterine ablation and tubal LIGATION 06/27/2015 [facility]. Lt [facility] - CARPAL TUNNEL - Family History Known Family History: Positive: Cardiac Disease, Hypertension - FATHER, Diabetes - Social History Occupation: Employed Full-time Lives: With Family Alcohol Use: None Substance Use Type: None Substance Use Comment - Amount & Last Used: 04/12/17 Smoking Status (MU): Former Smoker When Did the Patient Quit Smoking/Using Tobacco: 10 years ago - Immunization History Most Recent Influenza Vaccination: june 2016 Most Recent Tetanus Shot: UTD Most Recent Pneumonia Vaccination: N/A Vaccination Up to Date: Yes Review of Systems All Other Systems Reviewed And Are Negative: Yes Constitutional: Positive: Negative Skin: Positive: Negative Eyes: Positive: Negative ENT: Positive: Negative Respiratory: Positive: Negative Cardiovascular: Positive: Negative Gastrointestinal: Positive: Negative Genitourinary: Positive: Negative Motor: Positive: Negative Neurovascular: Positive: Negative Musculoskeletal: Positive: Decreased ROM - lower back, Other: - acute lower back radiating to both legs Neurological: Positive: Negative Psychological: Positive: Negative Is Patient Immunocompromised?: No Physical Exam - Summary Physical Exam Summary: Vital Signs Reviewed: Yes Appearance: Well-Appearing, Well-Nourished, Thin female sitting in the examining table w/o any apparent distress. Eyes: Positive: Conjunctiva Clear - PERRLA, EOMI. ENT: Positive: Normal ENT inspection, Hearing grossly normal, Pharynx normal, TMs normal, Uvula midline Neck: Positive: Supple, Nontender, No Lymphadenopathy Respiratory: Positive: Chest non-tender, Lungs clear, Normal breath sounds, No respiratory distress Cardiovascular: Positive: RRR, No Murmur, Pulses Normal, Brisk Capillary Refill Abdomen Description: Positive: Nontender, No Organomegaly, Soft. Negative: CVA Tenderness (R), CVA Tenderness (L) Bowel Sounds: Positive: Present Musculoskeletal: Positive: Strength Intact, BACK: Patient walked into the urgent care room with symmetric ambulation, No signs of limping, antalgic, able to bear weight. No signs of trauma, No masses palpated. Point tenderness at the level of L3-S1-2 and coccyx, left side mucle spasm at the same level, No CVAT, no flank ecchymosis . No sacroiliac notch tenderness, No saddle anesthesia.ROM: limited due to pain, Straight Leg Raise: unable to perform due to pain. negative. Patellar reflexes: brisk, symmetric Muscle strength lower extremities. Dorsiflexion/ plantar flexion of ankles. Heel/ toe walk. Lower extremities: Femoral, popliteal, posterior tibial, and dorsalis pedis pulses WNL. Pt refuse rectal exam Neurological: Positive: Alert, Muscle Tone Normal Psychological Exam: Normal Skin Exam: Normal Triage Information Reviewed: Yes Vital Signs: Initial Vital Signs Temp 98.4 F 08/11/18 14:04 Pulse 81 08/11/18 14:04 Resp 18 08/11/18 14:04 BP 125/55 08/11/18 14:04 Pulse Ox 100 08/11/18 14:04 Back Pain Course/Dx - Course Course Of Treatment: 33 y/o female presents to the urgent care c/o exacerbation of her chronic back pain s/p lifting something about 2 weeks ago. Pt reports she felt something pop. Pain is in the lower back and radiating to her tailbone , specially w/ sitting and standing up. Pt states she saw her PCP DR Brady about 1 week ago and was given Lidocaine injection which help only for a few days. Now pain returned. She requests and X-ray since something new may have happened to her lower back. Pain is 6/10 w/ certain movement. She has taken Ibuprofen PO 600mg PO to alleviate symptoms. Last dose taken was at 0600am today.Pt w/ PMHX of Fibromyalgia. Pt denies fever. urinary symptoms, saddle anesthesia, urinary or fecal incontinence, numbness or tingling sensation over the lower extremities, SOB, chest pain, abdominal pain, N/V/D. Hx obtained.PE: Point tenderness at the level of the L3-S1 and left paraspinal muscle spasm at the same level on examination. test ordered: negative. Lumbosacral X- ray ordered, Impression: Mild Degenerative Disc disease. Toradol IM inj ordered at the clinic. Given by nurse. Pt tolerated well medication pain decrease. Pt Rx Naproxen PO, Prednisone PO as directed below. Advised to continue taking Flexeril she has at home. and f/u w/ her PCP DR Campbell for further management. Plan of care was discussed with the patient and patient understands and agrees. All questions were answered at patient satisfaction. Pt left clinic hemodynamically stable. - Differential Dx/Diagnosis Differential Diagnosis/HQI/PQRI: Compressive Cord Syndrome, Herniated Disc, Renal Colic, Strain, Sprain, Other - UTI, muscle spam Provider Diagnosis: Low back pain radiating to lower extremity, Degenerative disc disease, lumbar Discharge - Sign-Out/Discharge Documenting (check all that apply): Patient Departure - d/c home All imaging exams completed and their final reports reviewed: Yes - Discharge Plan Condition: Stable Disposition: HOME Prescriptions: Naproxen TAB* [Naprosyn 250 mg TAB*] 250 mg PO Q8H PRN #30 tab PRN Reason: Pain predniSONE TAB* [Deltasone 20 MG TAB*] 20 mg PO DAILY #11 tab Patient Education Materials: Low Back Strain (ED), Degenerative Disc Disease ( ED) Referrals: Damián Dugan MD [Primary Care Provider] - 3 Days Additional Instructions: 1- Please take Naproxen PO as directed after meals for pain. Take Prednisone PO as directed to alleviate symptoms 2- Continue taking Flexeril PO as directed for muscle spasm. Please do not drive while taking the medication. 3- Wear a back support. Avoid strenuous exercise of heavy lifting. 4- Please follow up with your PCP Dr Brady in 3 days if not improvement of symptoms, for further management. - Billing Disposition and Condition Condition: STABLE Disposition: Home
[2018-08-11] MEDS ORDERED: Ketorolac INJ* 30 MG/ML 1 ML VIAL IM ONE (15:45)
== END 2018-08-11 16:44 | disposition home or self-care (01) ==
LOC: UCEAST 13:35
DX: M54.5 Low back pain (principal); M51.37 Other intervertebral disc degeneration, lumbosacral region; M79.7 Fibromyalgia; Z32.02 Encounter for pregnancy test, result negative; Z88.2 Allergy status to sulfonamides; Z87.891 Personal history of nicotine dependence
CPT/HCPCS: 72110; 81003; 84702; 99212; G0463; J1885

== ENCOUNTER 2019-01-11 07:33 | Emergency (ER) | payer OTHER ==
[2019-01-11 07:45] VITALS: BP 144/72
[2019-01-11] MEDS ORDERED: Aspirin TAB* 325 MG PO ONE (07:58)
--- NOTE | 2019-01-11 07:59 | UC ---
General HPI - HPI Summary HPI Summary: Patient c/o chest pain radiating down her left arm for the past two days. States she often gets anxiety, and under a tremendous amount of stress. Often gets anxiety attacks but the chest pain radiating down her left arm is new. She has been clammy. Vomited once yesterday. And feels SOB. This morning she woke up 'ok' but then her symptoms quickly returned. Increase in indigestion and pain is reproducible. She was just in the hospital last week diagnosed with fibromyalgia. States she hasn't started on antianxiety yet because she recently went through detox. Only using marijuana at this time. No etOH or other ilicit drugs. No recent fever or URI illness. Also c/o dizziness. PMHx : fibromyalgia, trigeminal neuralgia and anxiety. FMHx: Father with [place] at a young age. - History of Current Complaint Chief Complaint: UCChestPain Stated Complaint: TIGHT CHEST,LEFT ARM PAIN Time Seen by Provider: 01/11/19 07:38 Hx Last Menstrual Period: tubal Pain Intensity: 1 - Allergy/Home Medications Allergies/Adverse Reactions: Allergies Allergy/AdvReac Type Severity Reaction Status Date / Time sulfamethoxazole Allergy Diarrhea Verified 01/11/19 07:39 [From Bactrim] trimethoprim [From Bactrim] Allergy Diarrhea Verified 01/11/19 07:39 Home Medications: Home Medications Desvenlafaxine Succinate [Pristiq] 50 mg PO DAILY 01/11/19 [History Confirmed ] Ranitidine TAB (NF) [Zantac TAB (NF)] 150 mg PO BID 01/11/19 [History Confirmed 01/11/19] carBAMazepine TAB(*) [TEGretol TAB(*)] 100 mg PO BID 01/11/19 [History Confirmed 01/11/19] PMH/Surg Hx/FS Hx/Imm Hx Previously Healthy: Yes Neurological History: Migraine, Other - Trigeminal neuralgia Psychological History: Anxiety - Surgical History Surgical History: Yes Surgery Procedure, Year, and Place: -01/26/12;GANGLION CYST ON [facility] -06/23;. uterine ablation and tubal LIGATION 06/27/2015 [facility]. Lt [facility] - CARPAL TUNNEL - Family History Known Family History: Positive: Cardiac Disease, Hypertension - FATHER, Diabetes - Social History Alcohol Use: None Substance Use Type: None Substance Use Comment - Amount & Last Used: 04/12/17 Smoking Status (MU): Former Smoker When Did the Patient Quit Smoking/Using Tobacco: ~2007 - Immunization History Most Recent Influenza Vaccination: june 2016 Most Recent Tetanus Shot: UTD Most Recent Pneumonia Vaccination: N/A Vaccination Up to Date: Yes Review of Systems All Other Systems Reviewed And Are Negative: Yes Constitutional: Positive: Negative Respiratory: Positive: Shortness Of Breath Cardiovascular: Positive: Chest Pain Gastrointestinal: Positive: Nausea Physical Exam Triage Information Reviewed: Yes Appearance: Other: - anxious Vital Signs: Initial Vital Signs Temp 97.8 F 01/11/19 07:37 Pulse 100 01/11/19 07:37 Resp 20 01/11/19 07:37 BP 144/72 01/11/19 07:37 Pulse Ox 100 01/11/19 07:37 Vital Signs Reviewed: Yes ENT: Positive: Normal ENT inspection Neck: Positive: Supple, Nontender Respiratory: Positive: Lungs clear, Normal breath sounds Cardiovascular: Positive: No Murmur, Tachycardia Abdomen Description: Positive: Nontender, Soft Diagnostics - EKG Cardiac Rate: NL Course/Dx - Course Course Of Treatment: This is a 33 yr old with PMHx of anxiety c/o CP radiating down left arm EKG - NL DIscussed this is likely anxiety attack considering her stress and recent trigeminal neuralgia diagnosis However with new symptoms of chest pain down left arm, recommend going to the ER via EMS to R/O ACS Patient declined EMS transfer and understands risks of cardiac arrest and would rather drive herself directly to the ER ASA 325 mg PO x 1 given Plan Patient driving directly to [facility] Spoke with Kasey from the ER - Diagnoses Provider Diagnosis: Chest pain, Anxiety Discharge - Sign-Out/Discharge Documenting (check all that apply): Patient Departure All imaging exams completed and their final reports reviewed: No Studies - Discharge Plan Condition: Stable Disposition: HOME-RECOMMEND TO ED Patient Education Materials: Chest Pain (ED), Anxiety (ED) Referrals: Damián Dugan MD [Primary Care Provider] - Additional Instructions: Recommend going directly to the ER [facility] to rule out a heart attack If your lab work rules out a heart attack. This is likely anxiety. Recommend follow up with your PCP to start an anti-anxiety medication - Billing Disposition and Condition Condition: STABLE Disposition: Home-Recommend to ED
--- OUTSIDE RECORDS SUMMARY | 2019-01-11 08:03 | XMS REPORT | Continuity of Care Document ---
:1985 External Reference #:[id number] Author Name aKylene Kim Care Team Providers Name Role Phone Dorothy Rankin MD Primary Care Physician Unavailable Payers Date Identification Numbers Payment Provider Subscriber Expires: 2016 Policy Number: [id number] [employer] Isa Oliviax PayID: [id number] [address] [address] [place] [address] Effective: 2016 Policy Number: [id number] Leith Isa Leónul[employer] Group Number: [id number] [address] PayID: [id number] [place] [address] Advance Directives Description No Information Available Problems Active Problems Provider Date Pain in right arm Liza Danielle M.D. Onset: 04/01/2016 Disorder of shoulder Taco Metzger MD Onset: 04/16/2016 Neck pain Taco Metzger MD Onset: 04/16/2016 Thoracic radiculopathy Taco Metzger MD Onset: 04/16/2016 Fibromyalgia Taco Metzger MD Onset: 06/11/2016 Low back pain Tylor Zhao M.D. Onset: 11/17/2016 Family History Date Family Member(s) Observation Comments General Rheumatoid Arthritis General Fibromyalgia Social History Type Date Description Comments Sex Unknown Occupation Disabled Back ETOH Use Denies alcohol use Recreational Drug Use She now dose medical marijuana Tobacco Use Start: Unknown End: Patient is a former smoker Unknown Smoking Status Reviewed: 01/04/19 Patient is a former smoker Exercise Type/Frequency Exercises sporadically Allergies, Adverse Reactions, Alerts Active Allergies Reaction Severity Comments Date Bactrim 04/01/2016 Inactive Allergies NKDA 06/01/2012 Medications Active Medications SIG Qnty Indications Ordering Date Provider Pristiq Take one E53.8 Damián Dugan, 01/04/2019 50mg Tablets ER capsule/tablet M.D. 24HR daily by mouth Desvenlafaxine Take one 30tabs Damián Dugan, 12/07/2018 Succinate ER capsule/tablet M.D. 50mg Tablets daily by mouth ER 24HR Salsalate Take one 30tabs E53.8 Damián Dugan, 12/05/2018 500mg Tablets capsule/tablet by M.D. mouth twice daily as needed for pain, avoid prednisone Aspercreme Lidocaine apply one patch 30units Damián Dugan, 05/10/2018 Max Strength to the affected M.D. 4% Patches area daily, 12 hours on, 12 hours off Cyanocobalamin sq once monthly 75ml M79.7 Damián Dugan, 08/31/2017 1000mcg/ML M.D. Solution Elmiron 1 by mouth three Rinku Elliott MD 100mg Capsules times daily Claritin 1 by mouth every Unknown 10mg Capsules day Cyclobenzaprine HCL one by mouth Unknown 10mg three times a day Tablets as needed spasm Womens Multivitamin Unknown Tablets Ranitidine HCL Unknown 150mg Capsules History Medications Pristiq Take one 30tabs Damián Dugan, 10/31/2018 - 25mg Tablets capsule/tablet daily M.D. 12/07/2018 ER 24HR by mouth Prednisone take 4 tabs by mouth 30tabs E53.8 Damián Dugan, 10/31/2018 - 10mg daily for 2 days M.D. 01/04/2019 Tablets then 3 tabs daily for 2 days then 2 tabs for 2 days then 1 tab for 2 days then d/c as needed for flare Plaquenil Take one 30tabs E53.8 Damián Dugan, 07/13/2018 - 200mg capsule/tablet daily M.D. 10/31/2018 Tablets by mouth B12 Fast Dissolve sublingual daily 90tabs D51.9 Damián Dugan, 05/08/2018 - M.D. 01/04/2019 5000mcg Tablets Dispers Lidoderm 1 apply to affected 30units M54.5 Damián Dugan, 05/08/2018 - 5% Patches area 12 hours on, 12 M.D. 05/23/2018 hours off Melatonin TR With take one 90tabs G47.00 Damián Dugan, 04/12/2018 - Vitamin B6 capsule/tablet daily M.D. 05/08/2018 3-10mg by mouth Tablets ER Turmeric Take one Damián Dugan, 08/31/2017 - 500mg capsule/tablet daily M.D. 04/12/2018 Capsules by mouth Diclofenac Sodium take one 30tabs Damián Dugan, 08/11/2017 - capsule/tablet by M.D. 11/29/[address] mouth twice daily as needed for pain, avoid other nsaids Prednisone take 4 tabs by mouth 30tabs Damián Dugan, 06/15/2017 - 10mg daily for 2 days M.D. 08/31/2017 Tablets then 3 tabs daily for 2 days then 2 tabs for 2 days then 1 tab for 2 days then d/c Plaquenil 2 every other day 60tabs Damián Dugan, 06/07/2017 - 200mg M.D. 04/12/2018 Tablets Ibuprofen take 1 tablet by 42tabs Damián Dugan, 04/25/2017 - 800mg mouth three times M.D. 08/11/2017 Tablets daily as needed -- maximum daily dose 3, avoid other NSAIDs Meloxicam take one tab twice 60tabs M79.7 Damián Dugan, 12/24/2016 - 7.5mg daily as needed for M.D. 06/02/2017 Tablets pain, avoid other nsaids (PT Not Taking) Naltrexone HCL 4.5 mg compounded in 90units Damián Dugan, 11/18/2016 - capsules by mouth M.D. 12/24/2016 Powder every day Baclofen take 1 tab bid prn 60tabs R20.2 Damián Dugan, 11/08/2016 - 10mg Tablets muscle spasm M.D. 08/31/2017 Soma take one 30tabs R20.2 Damián Dugan 10/08/2016 - 350mg Tablets tablet/capsule by M.D. 11/08/2016 mouth at bedtime. as needed for severe muscular spasm Slow Release Iron take one 90tabs M79.7 Damián Dugan 09/24/2016 - capsule/tablet daily M.D. 12/24/2016 50mg Tablets ER by mouth Gabapentin 300mg by mouth three 90caps M79.7 Damián Dugan, 09/17/2016 - 300mg times daily for M.D. 11/16/2016 Capsules neuropathic pain Tizanidine HCL Take one 30tabs M79.7 Damián Dugan, 09/02/2016 - 2mg capsule/tablet by M.D. 09/24/2016 Tablets mouth twice daily as needed for spasms, avoid with driving Prednisone Please take 4 for 2 90tabs M79.7 Damián Dugan, 09/02/2016 - 5mg days then 3 for 2 M.D. 09/24/2016 Tablets days then 2 for 2 days 1 by mouth for 2 days then stop Prednisone take 3 tabs daily 30tabs Damián Dugan, 07/30/2016 - 2.5mg for 5 days then 2 M.D. 09/02/2016 Tablets tabs daily for 5 days then 1 tab daily for 5 days then discontinue Medrol take as directed by eduard M75.41 Taco Metzger, 06/11/2016 - 4mg TBPK packaging 07/07/2016 Tramadol HCL 1-2 tablets every 6 30tabs Nawaf Cobb, 05/18/2016 - 50mg hours as needed M.DAlexander 11/02/2016 Tablets Buspirone HCL tid 14tabs Taco Metzger, 04/16/2016 - 5mg 07/07/2016 Tablets Ultracet 1 - 2 po q4-6hr prn 30tabs Jami 06/25/2013 - 37.5-325mg oswaldo Mosquera M.D. 07/16/2014 Tablets Acetaminophen/Codein 1 po q 4-6 hr prn 30tabs Jami 09/28/2012 - e #3 oswaldo Mosquera M.D. 07/16/2014 300-30mg Tablets Ultracet 1 - 2 po q4-6hr prn 30tabs Jami 06/15/2012 - 37.5-325mg oswaldo Mosquera M.D. 07/16/[address] [facility]ort Unknown - 150mg 01/04/2019 Capsules Womens Daily Formula Unknown - 04/12/2018 Tablets Fluoxetine HCL 1 by mouth every day Unknown - 20mg 04/12/2018 Capsules Dexamethasone Unknown - 2mg 08/31/2017 Tablets Citalopram 1 by mouth every day Unknown - Hydrobromide 08/31/2017 20mg Tablets Amitriptyline HCL 1-2 at bedtime. Massiel, - MD Dorothy 11/29/2017 10mg Tablets Paroxetine HCL 1 by mouth every day Unknown - 40mg 05/30/2017 Tablets Prednisone 10mg daily Unknown - 10mg 07/30/2016 Tablets Xanax one by mouth up to Unknown - 0.25mg Tablets three times daily as 12/24/2016 needed for anxiety Topiramate 1 by mouth every day Unknown - 50mg 04/12/2018 Tablets Lyrica 1 by mouth every 30caps Damián Dugan, - 100mg Capsules night M.DAlexander 09/17/2016 Opana 1 tablet by mouth up 120tabs Unknown - 5mg Tablets to three times a day 03/31/2016 as needed. Cymbalta 1 by mouth every 90caps Unknown - 30mg Caps DR morning 03/31/2016 Part Valacyclovir HCL 1 po qd 90tabs Unknown - 07/16/2014 500mg Tablets Flexeril 1 tablet three times 30tabs Unknown - 5mg Tablets a day as needed 07/15/2014 Vol-Plus 1 qs Unknown - 27-1mg 07/16/2014 Tablets Medications Administered in Office Medication SIG Qnty Indications Ordering Provider Date B-12 Injection Damián Dugan M.D. 01/04/2019 Injection B-12 Injection Damián Dugan M.D. 12/07/2018 Injection Triamcinolone (Kenalog) Damián Dugan M.D. 12/07/2018 Injection B-12 Injection Damián Dugan M.D. 10/31/2018 Injection No Injection Damián Dugan M.D. 07/31/2018 Injection B-12 Injection Damián Dugan M.D. 07/13/2018 Injection B-12 Injection Damián Dugan M.D. 02/09/2018 Injection B-12 Injection Damián Dugan M.D. 11/29/2017 Injection B12 Provided By Patient Damián Dugan M.D. 08/31/2017 Injection Triamcinolone (Kenalog) Damián Dugan M.D. 04/25/2017 Injection Depomedrol 40MG Jami Mosquera M.D. 03/03/2016 Injection Depomedrol 40MG Jami Mosquera M.D. 11/05/2015 Injection Depomedrol 80MG Jami Mosquera M.D. 01/27/2015 Injection Depomedrol 80MG Jami Mosquera M.D. 07/17/2014 Injection Depomedrol 80MG Jami Mosquera M.D. 04/04/2013 Injection Immunizations Description No Information Available Vital Signs Date Vital Result Comment 01/04/2019 12:54pm Height 62 inches 5'2" Weight 109.25 lb Heart Rate 70 /min BP Systolic Sitting 118 mmHg BP Diastolic Sitting 76 mmHg Pain Level 7 O2 % BldC Oximetry 98 % BMI (Body Mass Index) 20.0 kg/m2 12/07/2018 9:49am Height 62 inches 5'2" Weight 112.38 lb Heart Rate 67 /min BP Systolic Sitting 118 mmHg BP Diastolic Sitting 78 mmHg Pain Level 9 O2 % BldC Oximetry 98 % BMI (Body Mass Index) 20.6 kg/m2 10/31/2018 9:51am Height 62 inches 5'2" Weight 114.00 lb Heart Rate 73 /min BP Systolic Sitting 119 mmHg BP Diastolic Sitting 82 mmHg Respiratory Rate 14 /min Pain Level 9 BMI (Body Mass Index) 20.8 kg/m2 07/31/2018 3:00pm Height 62 inches 5'2" Weight [...] Date Facility Test Result H/L Range Note Poc Urinalysis 08/11/2018 [facility] Poc Glucose, Negative Negative [address] [place] [address] [phone] Poc Bilirubin, Urine Negative Negative Poc Ketone, Urine Trace Abnormal Negative Poc Specific [place], Urine 1.020 N 1.010-1.030 Poc Blood, Urine Negative Negative Poc pH, Urine 6.5 N 5-9 Poc Protein, Urine Negative Negative Poc Urobilinogen, Urine 0.2 Negative Poc Nitrite, Urine Negative Negative Poc Leukocytes, Urine Negative Negative Poc Color, Urine Yellow Poc Clarity, Urine Clear 1 Laboratory test 08/11/2018 [facility] Poc , Negative Negative [address] [place] [address] [phone] Laboratory test 07/17/2018 [facility] Erythrocyte Sed 3 mm/Hr N 0-14 [address] [place] [address] [phone] Comp Metabolic 07/14/2018 [facility] Sodium 141 mmol/L N 135- [address] [place] [address] [phone] Potassium 3.8 mmol/L N 3.5-5.0 Chloride 107 [...] Egfr Non- 91.0 >60 Egfr 110.1 >60 4 Vitamin B12 07/14/2018 [facility] Vitamin B12 > 1450 pg/mL High 180-9[address] [place] [address] [phone] Folic Acid (Folate) > 20.00 ng/mL >3.99 Laboratory test 07/14/2018 [facility] TSH (Thyroid 1.06 mcIU/mL N 0.34-5.[address] Stim Horm) [place] [address] [phone] CK Isoenzymes 07/14/2018 [facility] Creatine 93 U/L 26 - [address] [place] [address] [phone] CK Isoenzyme Elec, Specimen See Comment 6 Laboratory test 07/14/2018 [facility] Rheumatoid Factor < 10 IU/ mL N <[address] [place] [address] [phone] C Reactive Protein < 1.00 mg/L N <8.01 Connective Tissue 07/14/2018 [facility] Anti-Nuclear Antibody 0.1 U [address] [place] [address] [phone] Cyclic Citrullinated Peptide <15.6 U 8 Interpretation See Comment 9 Laboratory test 11/26/2017 [facility] Erythrocyte Sed 5 mm/Hr N 0-14 [address] [place] [address] [phone] C Reactive Protein 1.12 mg/L N < 5.00 11 CBC Auto Diff 11/26/2017 [facility] White Blood 6.2 10^3/uL N 3.5-10.[address] [place] [address] [phone] Red Blood Count 4.35 10^6/uL N 4.0-5.4 [...] Cells % 0.1 Comp Metabolic Panel 11/26/2017 [facility] Sodium 137 mmol/L N 133-[address] [place] [address] [phone] Potassium 3.8 mmol/L N 3.5-5.0 Chloride 107 [...] Egfr Non- 91.5 >60 Egfr 117.7 >60 12 Laboratory test 11/26/2017 [facility] Vitamin B12 581 pg/mL N 180-914 13 finding [address] [place] [address] [phone] Comp Metabolic 05/18/2017 [facility] Sodium 140 mmol/L N 133- 145 Panel [address] [place] [address] [phone] Potassium 3.5 mmol/L N 3.5-5.0 Chloride 104 [...] N >60 14 CBC Auto Diff 05/18/2017 [facility] White Blood 7.7 10^3/uL N 3.5-10.[address] [place] [address] [phone] Red Blood Count 4.23 10^6/uL N 4.0-5.4 [...] Blood Cells % 0 N Laboratory test 05/18/2017 [facility] C Reactive < 1.00 N < 5.00 [address] Protein mg/[place] [address] [phone] Erythrocyte Sed Rate 47 mm/Hr High 0-14 16 Laboratory test 09/02/2016 [facility] C Reactive 1.12 mg/L N < 5.00 [address] [place] [place] [address] [phone] Erythrocyte Sed Rate 4 mm/Hr N 0-14 18 Creatine Kinase(CK) 41 U/L N 10-223 19 Cyclic Citrullinated Pep Igg <15.6 U N 20 Rheumatoid Factor <15 IU/mL N <15 21 Laboratory test 07/09/2016 [facility] Erythrocyte Sed 0 mm/Hr N 0-14 [address] [place] [address] [phone] Hla B27 07/09/2016 [facility] Hla B27 Negative N [address] [place] [address] [phone] Hla B27 Interp See Comment N 24 Laboratory test 07/09/2016 [facility] Lyme Disease Negative N Negative [address] [place] [address] [phone] Creatine Kinase(CK) 27 U/L N 10-223 26 Celiac Panel 07/09/2016 [facility] Tissue Transglutaminase <1.2 U/mL N [address] [place] [address] [phone] Immunoglobulin A 118 mg/dL N 61 - 356 Celiac Interpretation See Comment N 28 CBC Auto Diff 07/09/2016 [facility] White Blood 6.7 10^3/uL N 3.5-10.[address] [place] [address] [phone] Red Blood Count 4.41 10^6/uL N 4.0-5.4 [...] % 0 N Comp Metabolic Panel 07/09/2016 [facility] Sodium 140 mmol/L N 133-[address] [place] [address] [phone] Potassium 3.6 mmol/L N 3.5-5.0 Chloride 107 [...] 84.2 N >60 Egfr 108.3 N >60 29 Jes Igg AB Reflex 07/09/2016 [facility] SS-A/Ro Antibody <0.2 U N 30 [address] [place] [address] [phone] SS-B/La Antibody <0.2 U N 31 Sm (Capellan) IgG Antibody <0.2 U N 32 U1-nRNP Antibody <0.2 U N 33 Scl-70 (Scleroderma) Antibody <0.2 U N 34 Eulalia-1 Antibody <0.2 U N 35 Laboratory test finding 07/09/2016 [facility] Cortisol 3.12 ?g/ dL N 36 [address] [place] [address] [phone] C Reactive Protein 3.71 mg/L N < 5.00 37 Iron & Iron Binding 07/09/2016 [facility] Iron 43 g/dL Low 50-212 [address] [place] [address] [phone] Unsaturated Iron Binding 308 g/dL N Total Iron Binding Capacity 351 g/dL N 250-450 % Iron Saturation 12 % Low 15-55 Laboratory test 07/09/2016 [facility] T3 Free 3.30 pg/mL N 2.5 -3.9 38 finding [address] [place] [address] [phone] Free T4 (Free Thyroxine) 0.77 ng/dL N 0.61-1.12 39 TSH (Thyroid Stim Horm) 0.91 mcIU/mL N 0.34-5.60 40 Laboratory test 07/09/2016 [facility] Vitamin B12 446 pg/mL N 180-914 41 finding [address] [place] [address] [phone] Vitamin D, 1,25 Dihydroxy 79 pg/mL Abnormal 18-78 42 Celiac Hla DQ1/DQ2 07/09/2016 [facility] Hla-Dqa1 SEE BELOW N 43 [address] [place] [address] [phone] Hla-DQB1 SEE BELOW N 44 Celiac Gene Pairs Present? Yes N Celiac Gene Interpretation See Comment N 45 Arthritis Panel 05/11/2016 [facility] Uric Acid 3.6 mg/dL N 2.3-6.6 [address] [place] [address] [phone] Erythrocyte Sed Rate 4 mm/Hr N 0-14 Rheumatoid Factor <15 IU/mL N <15 46 Anti-Nuclear Antibody 0.1 U N 47 Cyclic Citrullinated Peptide <15.6 U N 48 Interpretation See Comment N 49 Laboratory test 05/11/2016 [facility] C Reactive < 1.00 N < 5.00 50 finding [address] [facility] Protein mg/[place] [address] [phone] Project Manager Senior: [id number] Project Manager Senior: [id number] Test Disclaimer: Positive bacteria, red blood cells, white blood cells, early , low specific gravity, and other factors may cause false positive or negative results. It is recommended to retest unexpected results within 24 to 72 hours with a serum test when applicable. If is still suspected, please repeat test after 48 to 72 hours. 3 Please check labs this week 4 Because ethnic data is not always readily [...] 15-29 5 Kidney failure <15 (or dialysis) 5 Normal Range 180 to 914 Indeterminate Range 145 to 180 Deficient Range <145 6 RESULT: If CK result is <100, isoenzyme will not be performed. Test Performed by: [facility] [address] [place] [address] 7 REFERENCE VALUE <=1.0 (Negative) 8 REFERENCE VALUE <20.0 (Negative) 9 Tests for antibodies to dsDNA and JES antigens are not performed automatically unless the ANETTE result is > or= 3.0 U. Studies performed at [facility] indicate that positive ANETTE results <3.0 U are rarely accompanied by positive second order tests. Test Performed by: [address] [address] 10 Please check 2 days before follow up 11 Acute inflammation: >10.00 12 Because ethnic data is not always readily [...] 15-29 5 Kidney failure <15 (or dialysis) 13 Normal Range 180 to 914 Indeterminate Range 145 to 180 Deficient Range <145 14 Because ethnic data is not always [...] 15 Acute inflammation: >10.00 16 Please check this week 17 Acute inflammation: >10.00 18 Please check today 19 Please check today 20 REFERENCE VALUE <20.0 (Negative) Test Performed by: [place] [address] [employer] Worker: Corey Damon II, M.D., Ph.D. 21 Test Performed by: [place] [address] [employer] Worker: Corey Damon II, M.D., Ph.D. 22 Please check this week 23 REFERENCE VALUE Not Applicable 24 RESULT: HLA-B27 antigen was not detected. ADDITIONAL INFORMATION Method: Flow Cytometry Performing Laboratory CLIA# [id number] Test Performed by: [place] [address] [employer] Worker: Corey Damon II, M.D., Ph.D. 25 Serologic response to B. burgdorferi infection is not detected, but cannot rule out early infection during which low or undetectable antibody levels to B. burgdorferi may be present. If clinically indicated, a new serum specimen should be submitted in 7-14 days. Test Performed by: [place] [address] [employer] Worker: Corey Damon II, M.D., Ph.D. 26 Please check this week 27 REFERENCE VALUE <4.0 (Negative) Test Performed by: [place] [address] [employer] Worker: Corey Damon II, M.D., Ph.D. 28 Negative serology. Celiac disease unlikely. However, approximately 10% of patients with celiac disease are seronegative. Also, patients who are already adhering to a gluten-free diet may be seronegative. If celiac disease is highly clinically suspected, consider HLA-DQ typing. Test Performed by: [place] [address] [employer] Worker: Corey Damon II, M.D., Ph.D. 29 Because ethnic data is not always readily [...] 15-29 5 Kidney failure <15 (or dialysis) 30 REFERENCE VALUE <1.0 (Negative) 31 REFERENCE VALUE <1.0 (Negative) 32 REFERENCE VALUE <1.0 (Negative) 33 REFERENCE VALUE <1.0 (Negative) 34 REFERENCE VALUE <1.0 (Negative) 35 REFERENCE VALUE <1.0 (Negative) Test Performed by: [address] [address] [employer] Worker: Corey Damon II, M.D., Ph.D. 36 AM 8.7-22.4 PM <10 37 Acute inflammation: >10.00 38 Please check this week 39 Please check this week 40 Please check this week 41 Normal Range 180 to 914 Indeterminate Range 145 to 180 Deficient Range <145 42 ADDITIONAL INFORMATION This test was developed and its performance characteristics determined by [facility] in a manner consistent with CLIA requirements. This test has not been cleared or approved by the [place].S. Food and Drug Administration. Test Performed by: [facility] [address] [employer] Worker: Corey Damon II, M.D., Ph.D. 43 RESULT: 01:02,05:01 REFERENCE VALUE Not Applicable 44 RESULT: 02:01,06:02 DQ Serologic Equivalent: 2,6 REFERENCE VALUE Not Applicable 45 These genes are permissive for celiac disease. The absence of HLA celiac permissive genes would make the presence of celiac disease unlikely. However, these genes can also be present in the normal population. ADDITIONAL INFORMATION Method: Molecular typing of HLA antigens performed using reverse SSOP and/or SSP methods, reported as serological equivalents and low to medium resolution molecular values. Performing Laboratory CLIA# [id number] Test Performed by: [place] [address] [employer] Worker: Corey Damon II, M.D., Ph.D. 46 Test Performed by: [facility] [place] [address] [employer] Worker: Corey Damon II, M.D., Ph.D. 47 REFERENCE VALUE <=1.0 (Negative) 48 REFERENCE VALUE <20.0 (Negative) 49 Tests for antibodies to dsDNA and JES antigens are not performed automatically unless the ANETTE result is > or= 3.0 U. Studies performed at [facility] indicate that positive ANETTE results <3.0 U are rarely accompanied by positive second order tests. Test Performed by: [facility] - [address] [address] [employer] Worker: Corey Damon II, M.D., Ph.D. 50 Acute inflammation: >10.00 Procedures Date Code Description Status 01/04/2019 73590 Admin Of Inj Completed 12/07/2018 55642 Admin Of Inj Completed 10/31/2018 10088 Admin Of Inj Completed 07/31/201802478 Trigger PT Inj(S) Single Or Multiple Points 1 Or 2 Muscles Completed 07/13/2018 46838 Admin Of Inj Completed 02/09/2018 46360 Admin Of Inj Completed 11/29/2017 42980 Admin Of Inj Completed 08/31/2017 75553 Admin Of Inj Completed 04/25/201756837 Trigger PT Inj(S) Single Or Multiple Points 1 Or 2 Muscles Completed 10/08/201620825 Trigger PT Inj(S) Single Or Multiple Points 1 Or 2 Muscles Completed 04/01/2016 07864 Needle Electromyography Complete, Five Or More Muscles Completed Studied 04/01/2016 23528 Nerve Conduction 03-04 Studies Completed 03/03/201674326 Inject/Drain Joint/Bursa Major W/O US Completed 11/05/201592023 Inject/Drain Joint/Bursa Major W/O US Completed 01/27/201537179 Inject/Drain Joint/Bursa Major W/O US Completed 07/17/201468316 Inject/Drain Joint/Bursa Major W/O US Completed 06/29/2013 44648 Carpal Tunnel Release Completed 05/17/2013 63755 Nerve Conduction 03-04 Studies Completed 04/04/201362134 Inject Tendon Sheath Or Ligament Aponeurosis Eg Plantar Completed Fascia 03/21/2013 45955 Rad Exam; Wrist, Comp, Min 3 Views Completed 09/21/2012 86079 Rad Shoulder Comp, Min. 2 Views Completed 06/23/2012 81921 Excision Ganglion Wrist/ Dorsal Or Volar; Primary Completed 06/01/2012 14167 Rad Exam; Wrist, Comp, Min 3 Views Completed Encounters Type Date Location Provider Dx Diagnosis Office Visit 12/07/2018 Rheumatology Services Paige Moseley.7 Fibromyalgia 9:40a Of Hung M.D. M54.5 Low back pain M54.6 Pain in thoracic spine E53.8 Deficiency of other specified B group vitamins Z79.899 Other group home (current) drug therapy Office Visit 10/31/2018 9:40a Rheumatology Darek Moseley79.7 Fibromyalgia Services Of [employer] M.D. 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 pain N28.1 Cyst of kidney, acquired M79.10 Myalgia, unspecified site Office Visit 07/13/2018 Rheumatology Damián M06.4 Inflammatory 2:00p Services Of Hung Dugan M.D. 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 M54.5 Low back pain R20.8 Other disturbances of skin sensation E53.8 Deficiency of other specified B group vitamins Office Visit 05/30/2017 2:00p Rheumatology Toshia Moseley [facility] Darek.Venkata M54.2 Cervicalgia R70.0 Elevated erythrocyte sedimentation rate D64.9 Anemia, unspecified H93.13 Tinnitus, bilateral J32.9 Chronic sinusitis, unspecified Office Visit 04/25/2017 9:40a Rheumatology Toshia Moseley [facility] Darek.Venkata M54.2 Cervicalgia M54.5 Low back pain D64.9 Anemia, unspecified Z79.899 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 Office Visit 11/02/2016 11:40a Rheumatology Toshia Moseley [facility] M.D. M54.5 Low back pain M54.2 Cervicalgia D64.9 Anemia, unspecified Office Visit 10/29/2016 11:00a Neurosurgery Paola Doty, R20.2 Paresthesia of [facility] PA-C skin M54.16 Radiculopathy, lumbar region Office Visit 10/08/2016 1:00p Rheumatology Toshia Moseley [facility] M.D. M54.2 Cervicalgia R20.2 Paresthesia of skin M25.511 Pain in right shoulder M53.82 Other specified dorsopathies, cervical region Office Visit 09/24/2016 12:40p Rheumatology Toshia Moseley [facility] M.D. M54.2 Cervicalgia D64.9 Anemia, unspecified K13.79 Other lesions of oral mucosa Office Visit 09/02/2016 9:40a Rheumatology Paige Moseley.7 Fibromyalgia [facility] R20.2 Paresthesia of skin M25.511 Pain in right shoulder M47.812 Spondylosis w/o myelopathy or radiculopathy, cervical region Office Visit 07/30/2016 11:20a Rheumatology Paige Moseley.7 [facility] Z79.52 [facility] (current) use of systemic steroids R10.2 Pelvic and perineal pain R10.84 Generalized abdominal pain Office Visit 07/07/2016 2:00p Rheumatology Services Damián Dugan M54.2 Cervicalgia Of [facility] M79.Carolyn Fibromyalgia R20.2 Paresthesia of skin M35.01 Sicca syndrome with keratoconjunctivitis Z79.52 insurance follow up rep (current) use of systemic steroids G43.719 Chronic migraine w/o aura, intractable, w/o stat migr Office Visit 06/11/2016 3:30p Orthopedic Geri Burch.41 Impingement Services Of syndrome of right C.M.A. shoulder M54.2 Cervicalgia M79.7 Fibromyalgia Office Visit 05/25/2016 3:15p Orthopedic Geri Burch.41 Impingement Services Of [place] syndrome of right C.M.A. shoulder M54.2 Cervicalgia G54.3 Thoracic root disorders, not elsewhere classified Office Visit 05/06/2016 8:15a Orthopedic Geri Burch.41 Impingement Services Of syndrome of right C.M.A. shoulder M54.2 Cervicalgia G54.3 Thoracic root disorders, not elsewhere classified Office Visit 04/16/2016 3:00p Orthopedic Geri Burch.41 Impingement [facility] syndrome of right AT [place] shoulder M54.2 Cervicalgia G54.3 Thoracic root disorders, not elsewhere classified Office Visit 05/30/2013 Orthopedic Jami 354.0 Carpal Tunnel 3:15p Services Of [facility]quera M.D. Syndrome AT [place] Office Visit 04/18/2013 Orthopedic Jami 727.05 Tenosynovitis Hand 2:30p Services Of [facility]era M.D. & Wrist Other AT [place] 354.2 Lesion Ulnar Nerve 354.0 Carpal Tunnel Syndrome Office Visit 03/21/2013 2:45p Orthopedic Jami Mosquera 719.44 Pain Joint Hand Services Of [facility] Oswald.Nadir. AT [place] Office Visit 10/30/2012 9:45a Orthopedic Jami Mosquera 719.41 Pain [facility] Darek.Nadir. Shoulder Region AT [place] 723.1 Cervicalgia Office Visit 10/16/2012 11:30a Orthopedic Jami Mosquera 719.41 Pain Joint Services Of [facility].Nadir. Shoulder Region AT [place] 726.10 Bursae & Tendon Disorders Shoulder Region Unspec Office Visit 09/21/2012 9:30a [facility] [employer] Jami Mosquera 719.41 Pain Joint of [place] Osw[place].Nadir. Shoulder Region 726.10 Bursae & Tendon Disorders Shoulder Region Unspec Office Visit 08/17/2012 9:30a [employer] Jami Mosquera 727.41 Ganglion Joint of [facility] Oswald.Nadir. 719.44 Pain Joint Hand Office Visit 06/01/2012 9:15a [employer] Jami Mosquera 719.44 Pain Joint of [place] Osw[facility].Nadir. Hand 727.41 Ganglion Joint Plan of Treatment Future Appointment(s):03/19/2019 11:00 am - Damián Dugan M.D. at [facility]01/04/2019 - Damián Dugan M.D.M54.5 Low back painE53.8 Deficiency of other specified B group vitaminsNew Medication:Pristiq 50 mg - Take one capsule/tablet daily by mouthFollow up:Follow up in 2 months or sooner if ymldrrO78.7 YggjcmpmhwqoD32.0 Trigeminal qortuskenF90.1 [facility]CI (current) use of non-steroidal anti-zbskyuzrdydcnjT49.0 Elevated erythrocyte sedimentation rateD64.9 Anemia, ketgmkzvhkjP78.9 Chronic sinusitis, unspecifiedFollow up:f/u in 2 months
--- OUTSIDE RECORDS SUMMARY | 2019-01-11 08:03 | XMS REPORT | Continuity of Care Document ---
:1985 External Reference #:[id number] Author Name Coreen Pickett Care Team Providers Name Role Phone Damián Dugan MD Care Team Information Machine Oiler Unavailable Dorothy Rankin MD Primary Care Physician Unavailable Payers Date Identification Numbers Payment Provider Subscriber Policy Number: [id number] [facility] Isa Armstrong PayID: [id number] [address] [place] [address] Advance Directives Description No Information Available Problems Description No Information Family History Date Family Member(s) Observation Comments Father Unknown Mother Unknown Social History Type Date Description Comments Sex Unknown Cigarette Use Quit 10 Years Ago Recreational Drug Use 07/06/2017 Current Drug User Recreational Drug Use Current Drug User marijuana Allergies, Adverse Reactions, Alerts Active Allergies Reaction Severity Comments Date Bactrim Nausea and Vomiting Moderate 07/06/2017 Medications Active Medications SIG Qnty Indications Ordering Provider Date Fluticasone Propionate 2 sprays each 1units Aaron Bowers, 07/06/2017 nostril every M.D. 50mcg/Act Suspension day Elmiron Unknown 100mg Capsules Amitriptyline HCL 1 by mouth at Unknown 10mg night Tablets Prozac Unknown 20mg Capsules Diclofenac Potassium 1 by mouth daily Unknown 50mg with food Tablets Plaquenil Unknown 200mg Tablets History Medications Cyclobenzaprine HCL one tab at hs 45tabs Aaron Bowers, 08/18/2017 - 10mg M.D. 01/07/2019 Tablets Dexamethasone 1 by mouth 7tabs Aaron Bowers, 08/18/2017 - 2mg Tablets every day M.D. 01/07/2019 Prednisone prn Unknown - 10mg Tablets 01/07/2019 Immunizations Description No Information Available Vital Signs Date Vital Result Comment 01/08/2019 8:33am Weight 115.00 lb Height 62 inches 5'2" BMI (Body Mass Index) 21.0 kg/m2 BP Systolic 119 mmHg BP Diastolic 78 mmHg Heart Rate 73 /min O2 % BldC Oximetry 99 % Body Temperature 98.7 F Pain Level 0 09/29/2017 9:47am Weight 125.38 lb Height 62 inches 5'2" BMI (Body Mass Index) 22.9 kg/m2 BP Systolic 114 mmHg BP Diastolic 77 mmHg Heart Rate 76 /min O2 % BldC Oximetry 99 % Body Temperature 98.6 F Pain Level 4 right ear 08/18/2017 3:15pm Weight 123.00 lb Height 62 inches 5'2" BMI (Body Mass Index) 22.5 kg/m2 BP Systolic 107 mmHg BP Diastolic 72 mmHg Heart Rate 90 /min O2 % BldC Oximetry 96 % Body Temperature 96.8 F Pain Level 0 07/06/2017 3:28pm Weight 122.12 lb Height 62 inches 5'2" BMI (Body Mass Index) 22.3 kg/m2 BP Systolic 133 mmHg BP Diastolic 75 mmHg Heart Rate 64 /min O2 % BldC Oximetry 99 % Body Temperature 98.5 F Results Description No Information Available Procedures Date Code Description Status 09/29/2017 75617 Tympanometry Completed 08/18/2017 77283 Tympanometry Completed 07/06/2017 71755 Tympanometry Completed 07/06/2017 06852 Audiometry, Comprehensive Completed Encounters Type Date Location Provider Dx Diagnosis Office Visit 09/29/2017 Main Office Aaron Bowers M.D. H69.93 Unspecified 9:45a Eustachian tube disorder, bilateral M26.603 Bilateral temporomandibular joint disorder, unspecified Office Visit 08/18/2017 3:15p Main Office Aaron Bowers H69.93 Unspecified Darek.DAlexander Eustachian tube disorder, bilateral M26.603 Bilateral temporomandibular joint disorder, unspecified Office Visit 07/06/2017 3:00p Main Office Leydi Arenas H69.93 Unspecified Yan, RAMESH Eustachian tube disorder, bilateral J34.3 Hypertrophy of nasal turbinates M26.601 Right temporomandibular joint disorder, unspecified Plan of Treatment No Information Available
== END 2019-01-11 08:08 | disposition home health service (06) ==
LOC: UCCORT 07:33
DX: F41.9 Anxiety disorder, unspecified (principal); R07.9 Chest pain, unspecified; G43.909 Migraine, unspecified, not intractable, without status migrainosus; G50.0 Trigeminal neuralgia; Z87.891 Personal history of nicotine dependence; Z88.2 Allergy status to sulfonamides; Z88.8 Allergy status to other drugs, medicaments and biological substances
CPT/HCPCS: 93005; 99212; G0463

== ENCOUNTER → 2019-06-12 07:45 | Emergency (ER) | payer OTHER ==
[~2019-06-12 07:45] MED LIST: Al Hydrox/Mg Hydrox/Simet LIQ* 30 ML UDC PO ONE; Famotidine IV* 10 MG/ML 2 ML (20 mg) IV SLOW PU ONE; Ketorolac INJ* 30 MG/ML 1 ML VIAL IV ONE; NS 0.9% 1000 ML** 1,000 ML BOLUS ONE; Ondansetron INJ* 2 MG/ML VIAL IV ONE; cefTRIAXone VIAL(*) 1,000 MG VIAL ONE; cefTRIAXone VIAL(*) 1,000 MG in NS 0.9% 50 ML* 50 ML IVPB ONE
--- NOTE | 2019-06-12 08:29 | UC ---
Abdominal Pain Female HPI - HPI Summary HPI Summary: 33 yo female with the onset of epigastric abd pain 2 days ago this was followed by numerous episodes of vomiting and diarrhea no fever has had chills no UTI symptoms no vaginal d/c or itch - History of Current Complaint Chief Complaint: UCAbdominalPain Stated Complaint: aBDOMINAL PAIN AND VOMITING Time Seen by Provider: 06/12/19 08:16 Hx Obtained From: Patient Hx Last Menstrual Period: ablasion Onset/Duration: Gradual Onset, Lasting Days Timing: Constant Severity Initially: Moderate Severity Currently: Moderate Pain Intensity: 7 Pain Scale Used: 0-10 Numeric Location: Epigastric Radiates: No Character: Aching, Colicy, Cramping Aggravating Factor(s): Food Alleviating Factor(s): Nothing Associated Signs and Symptoms: Positive: Diaphoresis, Dizzy, Decreased Appetite , Nausea, Vomiting, Diarrhea. Negative: Fever, Cough, Chest Pain, Back Pain, Constipation, Blood in Stool, Urinary Symptoms, Vaginal Bleeding, Vaginal Discharge Female Torso: 1 - pain Allergies/Adverse Reactions: Allergies Allergy/AdvReac Type Severity Reaction Status Date / Time sulfamethoxazole Allergy Diarrhea Verified 06/12/19 07:56 [From Bactrim] trimethoprim [From Bactrim] Allergy Diarrhea Verified 06/12/19 07:56 Home Medications: Home Medications Topiramate TAB(*) [Topamax 25 MG tab] 25 mg PO DAILY 06/12/19 [History Confirmed 06/12/19] PMH/Surg Hx/FS Hx/Imm Hx Previously Healthy: Yes - Surgical History Surgical History: Yes Surgery Procedure, Year, and Place: -01/26/12;GANGLION CYST ON Lt [facility] -06/23;. uterine ablation and tubal LIGATION 06/27/2015 [facility]. Lt [facility] - CARPAL TUNNEL - Family History Known Family History: Positive: Cardiac Disease, Hypertension - FATHER, Diabetes - Social History Alcohol Use: None Substance Use Type: Marijuana Substance Use Comment - Amount & Last Used: medical marijuana Smoking Status (MU): Former Smoker When Did the Patient Quit Smoking/Using Tobacco: ~2007 - Immunization History Most Recent Influenza Vaccination: june 2016 Most Recent Tetanus Shot: UTD Most Recent Pneumonia Vaccination: N/A Vaccination Up to Date: Yes Review of Systems All Other Systems Reviewed And Are Negative: Yes Constitutional: Positive: Chills, Fatigue Skin: Positive: Negative Eyes: Positive: Negative ENT: Positive: Negative Respiratory: Positive: Negative Cardiovascular: Positive: Negative Gastrointestinal: Positive: Abdominal Pain, Vomiting, Diarrhea, Nausea Genitourinary: Positive: Negative Neurovascular: Positive: Negative Musculoskeletal: Positive: Negative Neurological: Positive: Negative Psychological: Positive: Negative Physical Exam Triage Information Reviewed: Yes Appearance: Well-Appearing, No Pain Distress, Well-Nourished Vital Signs: Initial Vital Signs Temp 98.4 F 06/12/19 07:50 Pulse 82 06/12/19 07:50 Resp 18 06/12/19 07:50 BP 112/70 06/12/19 07:50 Pulse Ox 100 06/12/19 07:50 Vital Signs Reviewed: Yes Eyes: Positive: Conjunctiva Clear, Other: - anicteric sclera ENT: Positive: Hearing grossly normal, Uvula midline. Negative: Nasal congestion, Nasal drainage, Tonsillar swelling, Tonsillar exudate, Muffled voice , Hoarse voice Dental Exam: Normal Neck: Positive: Supple Respiratory: Positive: Lungs clear, Normal breath sounds, No respiratory distress, No accessory muscle use Cardiovascular: Positive: RRR, No Murmur Abdomen Description: Positive: No Organomegaly, Soft, CVA Tenderness (L) - slight. Negative: Nontender - tenderl LUQ Bowel Sounds: Positive: Present Musculoskeletal: Positive: ROM Intact, No Edema Neurological: Positive: Alert Psychological Exam: Normal Skin Exam: Normal Procedures - Sedation Patient Received Moderate/Deep Sedation with Procedure: No Diagnostics - Laboratory Lab Results: UA ++ leuks, tr RBCs - Radiology No standard instances Radiology Interpretation Completed By: Radiologist Summary of Radiographic Findings: 1. A LEFT ADNEXAL CYST MEASURING UP TO APPROXIMATELY 3.7 CM WOULD BE BETTER EVALUATED BY ULTRASOUND. 2. NO HYDROURETERONEPHROSIS OR OBSTRUCTIVE RENAL CALCULUS. THERE IS A NONOBSTRUCTIVE PUNCTATE CALCULUS IN THE LOWER POLE LEFT KIDNEY. THERE IS A CALCIFIED CYST IN THE POSTERIOR UPPER POLE THE RIGHT KIDNEY. 3. THE CIRCUMSCRIBED FLUID ATTENUATING STRUCTURE IN THE RIGHT PARACOLIC GUTTER HAS NOT SIGNIFICANTLY CHANGED FROM 2010. CONSIDERATIONS INCLUDE MESENTERIC CYST, LYMPHOCELE OR DUPLICATION CYST. 4. STATUS POST TUBAL LIGATION pelvic ultrasound Radiology Interpretation Completed By: Radiologist Summary of Radiographic Findings: 3.5 CM COMPLEX OF THE LEFT OVARIAN CYST RECOMMEND A FOLLOW-UP PELVIC ULTRASOUND IN 1-2 MONTHS TIME TO DEMONSTRATE RESOLUTION Re-Evaluation - Re-Evaluation First Eval Re-Evaluation Time: 10:14 Change: Unchanged - I advised patient go to the ER for further investigation/ she declined Second Eval Re-Evaluation Time: 12:17 Change: Improved - no nausea, decreased pain Abd Pain Female Course/Dx - Differential Dx/Diagnosis Provider Diagnosis: Acute vomiting, Acute diarrhea, UTI (urinary tract infection), Left ovarian cyst Discharge ED - Sign-Out/Discharge Documenting (check all that apply): Patient Departure All imaging exams completed and their final reports reviewed: Yes - Discharge Plan Condition: Stable Disposition: HOME Prescriptions: Cephalexin CAP* [Keflex CAP*] 500 mg PO BID #14 cap Ondansetron TAB* [Zofran Tab*] 4 mg PO Q6H PRN #10 tab PRN Reason: Nausea Patient Education Materials: Ovarian Cyst (ED), Urinary Tract Infection in Women (ED), Acute Nausea and Vomiting (ED), Acute Diarrhea (ED) Forms: *Work Release Referrals: Nydia Olvera MD [Primary Care Provider] - 2 Days (if not better) Additional Instructions: TO ER FOR NEW OR WORSENING SYMPTOMS you have a left ovarian cyst it needs repeat ultrasound in 1-2 mos this should be ordered through your MD recheck in 2 days if not better - Billing Disposition and Condition Condition: STABLE Disposition: Home
[2019-06-12 10:43] VITALS: BP 112/58
== END | disposition home or self-care (01) ==
LOC: UCEAST 07:45
DX: N39.0 Urinary tract infection, site not specified (principal); R19.7 Diarrhea, unspecified; R11.2 Nausea with vomiting, unspecified; N83.202 Unspecified ovarian cyst, left side; Z88.2 Allergy status to sulfonamides; Z87.891 Personal history of nicotine dependence
CPT/HCPCS: 74176; 76830; 81003; 84702; 87086; 96365; 96375; 96376; 99212; A9270-GY; G0463; J0696; J1885; J2405

== ENCOUNTER 2019-11-14 07:23 | Emergency (ER) | payer OTHER ==
--- OUTSIDE RECORDS SUMMARY | 2019-11-14 07:29 | XMS REPORT | Continuity of Care Document ---
:1985 External Reference #:[id number] Author Name Aaron Bowers M.D. (transmitted by agent of provider Coreen Pickett) Address [address] [place] [id number] Care Team Providers Name Role Phone Damián Dugan MD - Rheumatology Care Team Information Warehouse Order Picker [phone] Nydia Olvera MD - Family Care Team Information Warehouse Order Picker Medicine Problems Description No Information Available Social History Type Date Description Comments Sex Unknown Cigarette Use Quit 10 Years Ago Recreational Drug Use 07/06/2017 Current Drug User Recreational Drug Use Current Drug User marijuana Allergies, Adverse Reactions, Alerts Active Allergies Reaction Severity Comments Date Bactrim Nausea and Vomiting Moderate 07/06/2017 sulfa 01/08/2019 Medications Active Medications SIG Qnty Indications Ordering Provider Date Fluticasone Propionate 2 sprays each 1units Aaron Bowers, 07/06/2017 nostril every M.D. 50mcg/Act Suspension day Elmiron Unknown 100mg Capsules Amitriptyline HCL 1 by mouth at Unknown 10mg night Tablets Prozac Unknown 20mg Capsules Diclofenac Potassium 1 by mouth daily Unknown 50mg with food Tablets Plaquenil Unknown 200mg Tablets Immunizations Description No Information Available Vital Signs Date Vital Result Comment 11/01/2019 9:10am Weight 109.00 lb Height 62 inches 5'2" BMI (Body Mass Index) 19.9 kg/m2 BP Systolic 112 mmHg BP Diastolic 74 mmHg Heart Rate 63 /min O2 % BldC Oximetry 98 % Body Temperature 99.0 F Pain Level 0 07/26/2019 1:10pm Weight 111.00 lb Height 62 inches 5'2" BMI (Body Mass Index) 20.3 kg/m2 BP Systolic 103 mmHg BP Diastolic 69 mmHg Heart Rate 66 /min O2 % BldC Oximetry 99 % Body Temperature 98.2 F Pain Level 2 Results Description No Information Available Procedures Date Code Description Status 07/26/2019 64284 Fiberoptic Laryngoscopy,Diag. Completed Medical Devices Description No Information Available Encounters Type Date Location Provider Dx Diagnosis Office Visit 07/26/2019 Main Office Aaron Bowers M.D. G50.0 Trigeminal neuralgia 1:15p M26.603 Bilateral temporomandibular joint disorder, unspecified R13.10 Dysphagia, unspecified E04.2 Nontoxic multinodular goiter Assessments Date Code Description Provider 07/26/2019 G50.0 Trigeminal neuralgia Aaron Bowers M.D. 07/26/2019 M26.603 Bilateral temporomandibular joint disorder, Aaron Bowers M.D. unspecified 07/26/2019 R13.10 Dysphagia, unspecified Aaron Bowers M.D. 07/26/2019 E04.2 Nontoxic multinodular goiter Aaron Bowers M.D. Plan of Treatment No Information Available Functional Status Description No Information Available Mental Status Description No Information Available Referrals Refer to Reason for Referral Status Appt Date Aaron Bowers M.D. auth for ultrasound dos 11/01/[address] [place] [id number] [phone]
[2019-11-14 07:37] VITALS: BP 121/76
--- NOTE | 2019-11-14 07:51 | UC ---
Respiratory Complaint HPI - HPI Summary HPI Summary: cough x 8 days cough is dry , worse with deep breathing, better with rest, c/o sore throat , nasal congestion, pnd, no fever, + chills body aches - History of Current Complaint Chief Complaint: UCRespiratory Stated Complaint: COUGH,PARADA,SWEATS Time Seen by Provider: 11/14/19 07:40 Hx Obtained From: Patient Hx Last Menstrual Period: s/p Uterine Ablation ?: No Onset/Duration: Gradual Onset, Lasting Days - 8, Still Present Timing: Constant Severity Initially: Moderate Severity Currently: Moderate Pain Intensity: 4 Character: Cough: Nonproductive Aggravating Factors: Exertion, Deep Breaths Alleviating Factors: Nothing Associated Signs And Symptoms: Positive: Negative, Chills, Wheezing, URI, Nasal Congestion, Sinus Discomfort. Negative: Fever, Dizziness, Calf Pain, Calf Swelling - Allergies/Home Medications Allergies/Adverse Reactions: Allergies Allergy/AdvReac Type Severity Reaction Status Date / Time trimethoprim [From Bactrim] Allergy Diarrhea Verified 11/14/19 07:33 sulfamethoxazole AdvReac Diarrhea Verified 11/14/19 07:33 [From Bactrim] Home Medications: Home Medications Benzonatate CAP* [Tessalon 100 MG CAP*] 100 mg PO TID PRN #15 cap 11/14/19 [Rx] PMH/Surg Hx/FS Hx/Imm Hx Previously Healthy: Yes - Surgical History Surgical History: Yes Surgery Procedure, Year, and Place: -01/26/12;GANGLION CYST ON Lt [facility] -06/23;. uterine ablation and tubal LIGATION 06/27/2015 [facility]. Lt [facility] - CARPAL TUNNEL - Family History Known Family History: Positive: Cardiac Disease, Hypertension - FATHER, Diabetes - Social History Alcohol Use: None Substance Use Type: Marijuana Substance Use Comment - Amount & Last Used: medical marijuana Smoking Status (MU): Former Smoker When Did the Patient Quit Smoking/Using Tobacco: ~2007 - Immunization History Most Recent Influenza Vaccination: june 2016 Most Recent Tetanus Shot: UTD Most Recent Pneumonia Vaccination: N/A Vaccination Up to Date: Yes Review of Systems All Other Systems Reviewed And Are Negative: Yes Constitutional: Positive: Chills, Fatigue. Negative: Fever Skin: Positive: Negative Eyes: Positive: Negative ENT: Positive: Sore Throat, Ear Ache, Nasal Discharge, Sinus Congestion, Sinus Pain/Tenderness Respiratory: Positive: Cough Is Patient Immunocompromised?: No Physical Exam Triage Information Reviewed: Yes Appearance: Well-Appearing, No Pain Distress, Well-Nourished Vital Signs: Initial Vital Signs Temp 98 F 11/14/19 07:31 Pulse 76 11/14/19 07:31 Resp 16 11/14/19 07:31 BP 121/76 11/14/19 07:31 Pulse Ox 100 11/14/19 07:31 Vital Signs Reviewed: Yes Eye Exam: Normal Eyes: Positive: Conjunctiva Clear ENT: Positive: Normal ENT inspection, Hearing grossly normal, Pharynx normal Neck: Positive: Supple, Nontender, No Lymphadenopathy Respiratory Exam: Normal Respiratory: Positive: Chest non-tender, Lungs clear, Normal breath sounds Cardiovascular: Positive: RRR, No Murmur, Pulses Normal Skin Exam: Normal Respiratory Course/Dx - Differential Dx/Diagnosis Provider Diagnosis: Viral bronchitis Discharge ED - Sign-Out/Discharge Documenting (check all that apply): Patient Departure All imaging exams completed and their final reports reviewed: No Studies - Discharge Plan Condition: Stable Disposition: HOME Prescriptions: Benzonatate CAP* [Tessalon 100 MG CAP*] 100 mg PO TID PRN #15 cap PRN Reason: Cough Patient Education Materials: Acute Bronchitis (ED) Forms: *Work Release Referrals: Nydia Olvera MD [Primary Care Provider] - If Needed - Billing Disposition and Condition Condition: STABLE Disposition: Home
== END 2019-11-14 07:49 | disposition home or self-care (01) ==
LOC: UCCORT 07:23
DX: J20.8 Acute bronchitis due to other specified organisms (principal); H92.09 Otalgia, unspecified ear; Z88.2 Allergy status to sulfonamides; Z87.891 Personal history of nicotine dependence
CPT/HCPCS: 99212; G0463